=== PATIENT | male | born 1985 | race Caucasian/White ===

== ENCOUNTER 2016-09-04 20:14 | Emergency (ER) | payer BC, OTHER ==
[~2016-09-04] VITALS: Ht 200.7 cm; Wt 109.0 kg
[~2016-09-04 20:14] MED LIST: AMIT10TA6 PO; MOBI15TA PO; MS C15TA2 PO; ROBA750T PO
[2016-09-04 20:17] VITALS: BP 134/90; PULSE 78; RESP 16; TEMP 98; O2SAT 96
--- NOTE | 2016-09-04 20:29 | PD ---
HPI Chief Complaint: Pain: Acute or Chronic Time Seen by Provider: 20:29 Travel History International Travel<30 days: No Contact w/Intl Traveler<30days: No Traveled to known affect area: No History of Present Illness HPI 31-year-old male presents to emergency department for evaluation of low back pain with intermittent radiation down his right buttock and hip. Patient states he had a discectomy in May by Dr. Green. He states he has been doing well until one week ago he was playing kickball with his hoahaoism when another man jumped on his back playing. He felt that he had "tweaked" his back at that time but over the course of the week he has noticed worsening low back pain with the pain radiating into his buttock and hip on the right. He states sometimes he has numbness down to his toe but this is intermittent. Denies any saddle paresthesia, loss of bowel or bladder, lower extremity weakness. No midline spinal pain. No other symptoms to report. PFSH Past Medical History Cancer: No Cardiovascular Problems: No Diabetes: No Endocrine: No Genitourinary: No Hepatitis: No Hiatal Hernia: No Immune Disorder: No Musculoskeletal: Yes (HERNIATED DISK) Neurologic: No Psychiatric: No Reproductive: No Respiratory: No Immunizations Current: Yes Thyroid Disease: No Past Surgical History Abdominal Surgery: No AICD: No Cardiac Surgery: No Ear Surgery: No Endocrine Surgery: No Eye Surgery: No Genitourinary Surgery: No Gynecologic Surgery: No Joint Replacement: No Oral Surgery: No Pacemaker: No Thoracic Surgery: No Social History Alcohol Use: No Tobacco Use: Yes (1 PPD) Substance Use: No Allergies-Medications (Allergen,Severity, Reaction): Coded Allergies: Tramadol (Unverified Allergy, Severe, HEADACHES, 09/04/16) Reported Meds & Prescriptions Reported Meds & Active Scripts Active Robaxin (Methocarbamol) 500 Mg Tab 500 Mg PO TID PRN Ibuprofen 800 Mg Tab 800 Mg PO Q8H PRN Robaxin (Methocarbamol) 750 Mg Tab 1,500 Mg PO TID Mobic (Meloxicam) 15 Mg Tab 15 Mg PO DAILY Reported Ms Contin (Morphine Sulfate) 15 Mg Tab 15 Mg PO DAILY Amitriptyline (Amitriptyline HCl) 10 Mg Tab 10 Mg PO HS Review of Systems Except as stated in HPI: all other systems reviewed are Neg Physical Exam Narrative GENERAL: Well-nourished male patient, ambulatory and in no acute distress SKIN: Warm and dry. HEAD: Atraumatic. Normocephalic. EYES: Pupils equal and round. No scleral icterus. No injection or drainage. ENT: No nasal bleeding or discharge. Mucous membranes pink and moist. NECK: Trachea midline. No JVD. CARDIOVASCULAR: Regular rate and rhythm. No murmur appreciated. RESPIRATORY: No accessory muscle use. Clear to auscultation. Breath sounds equal bilaterally. GASTROINTESTINAL: Abdomen soft, non-tender, nondistended. Hepatic and splenic margins not palpable. MUSCULOSKELETAL: No obvious deformities. No clubbing. No cyanosis. No edema. No midline spinal tenderness. Distal pulses are palpable. Cap refill is within normal limits. Equal strength bilateral lower extremities. NEUROLOGICAL: Awake and alert. No obvious cranial nerve deficits. Motor grossly within normal limits. Normal speech. PSYCHIATRIC: Appropriate mood and affect; insight and judgment normal. Data Data Last Documented VS Vital Signs Date Time Temp Pulse Resp B/P Pulse Ox O2 Delivery O2 Flow Rate FiO2 09/04/16 22:15 82 17 138/86 99 09/04/16 20:[address] Lumb Spine W/O Contrast (09/04/16 ) Ketorolac Inj (Toradol Inj) (09/04/16 20:45) Orphenadrine Inj (Norflex Inj) (09/04/16 20:45) MDM Medical Decision Making Medical Screen Exam Complete: Yes Emergency Medical Condition: Yes Medical Record Reviewed: Yes Differential Diagnosis Lumbar strain versus discogenic pain versus radiculopathy Narrative Course 31-year-old male presents to emergency department for evaluation of low back pain. Patient appears without distress. He has no focal deficits or weakness. He is given IM Toradol and Norflex here in the emergency department. Recent history of surgery and possible reinjury, CT imaging is complete. There is no acute fracture or spinal listhesis. Postop right laminectomy at L5-S1 with a suspected area of scarring or residual or recurrent disc material centrally and in the right lateral recess. Patient is discharged home to follow-up with primary care provider and Dr. Green. He agrees to return immediately with any acute worsening symptoms. Diagnosis Primary Impression: Acute low back pain Qualified Code: M54.5 - Acute bilateral low back pain without sciatica Additional Impression: Radicular pain of right lower extremity Referrals: Artis Green MD call for appointment Primary Care Physician Patient Instructions: Acute Low Back Pain (ED), General Instructions Departure Forms: Tests/Procedures, Work Release Enter return to work date: Sep 07, 2016 Additional Instructions: Avoid heavy lifting, bending, twisting Follow-up with Dr. Green Contact his office Tuesday for an appointment Return immediately with any acute worsening of symptoms Med/Other Pt SpecificInfo: Prescription(s) given Scripts Methocarbamol (Robaxin)500 Mg Ion924 Mg PO TID PRN (MUSCLE SPASM) #20 TAB Ref 0 Prov:Selina Doran 09/04/16 Ibuprofen 800 Mg [id number] Mg PO Q8H PRN (PAIN SCALE 1 TO 10) #30 TAB Ref 0 Prov:Selina Doran 09/04/16 Disposition: 01 DISCHARGE HOME Condition: Stable Selina Doran Sep 04, 2016 20:29
[2016-09-04] MEDS ORDERED: KETOROLAC TROMETHAMINE 60 MG/2 ML (IM) VIAL IM ONE (20:45)
[2016-09-04] MEDS ORDERED: ORPHENADRINE INJ 60 MG/2 ML AMP IM ONE (20:45)
--- NOTE | 2016-09-04 21:40 | RADRPT ---
EXAM DATE/TIME: 09/04/2016 21:04 [facility] COMPARISON: No previous studies available for comparison. INDICATIONS : Back pain after someone jumped on his back; 3 months post diskectomy. RADIATION DOSE: 19.76 CTDIvol (mGy) MEDICAL HISTORY : None SURGICAL HISTORY : L5 - S1 diskectomy ENCOUNTER: Initial ACUITY: 1 week PAIN SCALE: 7/10 LOCATION: lower back TECHNIQUE: Volumetric scanning of the lumbar spine was performed. Multiplanar reconstructions in the sagittal, coronal and oblique axial planes were performed. Using automated exposure control and adjustment of the mA and/or kV according to patient size, radiation dose was kept as low as reasonably achievable t o obtain optimal diagnostic quality images. FINDINGS: VERTEBRAE: Normal alignment ALIGNMENT: No evidence of subluxation. T12-L1: The thecal sac has a normal diameter. No evidence of disc bulge or protrusion. The neural foramina are patent bilaterally. L1-L2: The thecal sac has a normal diameter. No evidence of disc bulge or protrusion. The neural foramina are patent bilaterally. L2-L3: The thecal sac has a normal diameter. No evidence of disc bulge or protrusion. The neural foramina are patent bilaterally. L3-L4: The thecal sac has a normal diameter. No evidence of disc bulge or protrusion. The neural foramina are patent bilaterally. L4-L5: Broad-based posterior disc bulge with mild encroachment on the lateral recesses and foramina. L5-S1: Postoperative right-sided partial laminectomy. There is a residual or recurrent area of disc protrusi on or scarring centrally as well as scarring in the right epidural space and lateral recess. CONCLUSION: 1. No acute fracture or spondylolisthesis. Postop right laminectomy at L5-S1 with a suspected area of scarring or residual or recurrent disc material centrally and in the right lateral recess. James Heart MD on September 04, 2016 at 21:32 Board Certified Radiologist. This report was verified electronically.
[2016-09-04] MEDS ORDERED: ROBA500T PO (21:57)
[2016-09-04] MEDS ORDERED: IBUP800T23 PO (21:57)
[2016-09-04 22:15] VITALS: BP 138/86
[2016-09-20] MEDS ORDERED: NUCY50TA9 (09:46)
[2016-09-20] MEDS ORDERED: CELE200C PO (10:08)
[2016-09-20] MEDS ORDERED: SOMA350T PO (10:08)
[2016-09-20] MEDS ORDERED: GABA600T PO (10:10)
[2016-10-18] MEDS ORDERED: OXYMTAB (10:28)
[2016-10-18] MEDS ORDERED: SOMA350T PO (10:53)
[2016-11-12] MEDS ORDERED: TIZA4CAP3 (09:41)
[2016-11-12] MEDS ORDERED: NUCY50TA9 (09:41)
[2016-11-12] MEDS ORDERED: OXYM5TAB (09:41)
[2016-11-12] MEDS ORDERED: OXYMTAB (09:41)
[2016-11-12] MEDS ORDERED: CELE1CAP8 (09:41)
[2016-11-12] MEDS ORDERED: GABA600T (09:41)
[2016-11-12] MEDS ORDERED: IBUP800T23 (09:41)
[2016-11-12] MEDS ORDERED: OXYC1TAB36 (09:41)
[2016-11-12] MEDS ORDERED: AMIT25TA9 (09:41)
[2016-11-12] MEDS ORDERED: METH750T (09:41)
[2016-11-22] MEDS ORDERED: PERC10TA27 PO (16:58)
[2016-11-22] MEDS ORDERED: ZANA4CAP PO (16:58)
[2016-11-22] MEDS ORDERED: AMIT25TA9 PO (16:58)
== END 2016-09-04 22:16 | disposition home or self-care (01) ==
LOC: NEPC 20:14
DX: M54.5 Low back pain (principal); M54.10 Radiculopathy, site unspecified; M79.604 Pain in right leg; F17.200 Nicotine dependence, unspecified, uncomplicated; Z87.39 Personal history of other diseases of the musculoskeletal system and connective tissue; W50.0XXA Accidental hit or strike by another person, initial encounter; Y93.69 Activity, other involving other sports and athletics played as a team or group
CPT/HCPCS: 72131; 96372; 99283; J1885; J2360

== ENCOUNTER 2016-10-23 17:36 | Emergency (ER) | payer BC ==
[~2016-10-23] VITALS: Ht 200.7 cm; Wt 111.9 kg
[~2016-10-23 17:36] MED LIST changes: +CELE200C PO; +GABA600T PO; +IBUP800T23 PO; -MS C15TA2 PO; +OXYMTAB; -ROBA750T PO; +SOMA350T PO
[2016-10-23 17:46] VITALS: BP 133/83; PULSE 93; RESP 16; TEMP 99.2; O2SAT 100
[2016-10-23] MEDS ORDERED: SOMA350T PO (18:10)
[2016-10-23] MEDS ORDERED: AMOX500T PO (18:18)
--- NOTE | 2016-10-23 18:18 | PD ---
HPI . Sore throat Chief Complaint: Cold / Flu Symptoms Time Seen by Provider: 18:15 Travel History International Travel<30 days: No Contact w/Intl Traveler<30days: No Traveled to known affect area: No History of Present Illness HPI Patient presents with a sore throat. He has a subjective fever. Symptoms started today. No noted exacerbating or relieving factor. His is here with similar symptoms. His 's breath smells like strep. PFSH Past Medical History Cancer: No Cardiovascular Problems: No Diabetes: No Diminished Hearing: No Endocrine: No Gastrointestinal Disorders: No Genitourinary: No Hepatitis: No Hiatal Hernia: No Hypertension: No Immune Disorder: No Musculoskeletal: Yes (HERNIATED DISK) Neurologic: No Psychiatric: No Reproductive: No Respiratory: No Immunizations Current: Yes Thyroid Disease: No Tetanus Vaccination: < 5 Years Past Surgical History Abdominal Surgery: No AICD: No Cardiac Surgery: No Ear Surgery: No Endocrine Surgery: No Eye Surgery: No Genitourinary Surgery: No Gynecologic Surgery: No Joint Replacement: No Neurologic Surgery: No Oral Surgery: No Pacemaker: No Thoracic Surgery: No Other Surgery: Yes Social History Alcohol Use: No Tobacco Use: Yes (1 PPD) Substance Use: No Allergies-Medications (Allergen,Severity, Reaction): Coded Allergies: Tramadol (Unverified Allergy, Severe, HEADACHES, 10/23/16) Reported Meds & Prescriptions Reported Meds & Active Scripts Active Reported Soma (Carisoprodol) 350 Mg Tab 350 Mg PO QID PRN Review of Systems Except as stated in HPI: all other systems reviewed are Neg General / Constitutional: Positive: Chills HENT: Positive: Sore Throat Physical Exam Narrative GENERAL: Awake and alert and in no acute distress. SKIN: Warm and dry. HEAD: Atraumatic. Normocephalic. ENT: Oropharynx has erythema with tonsillar enlargement. He has an exudate in the tonsils. There is no peritonsillar swelling. EYES: Pupils equal and round. NECK: Trachea midline. Positive cervical lymphadenopathy. CARDIOVASCULAR: Regular rate and rhythm. RESPIRATORY: No accessory muscle use. MUSCULOSKELETAL: No obvious deformities. No edema. NEUROLOGICAL: Awake and alert. No obvious cranial nerve deficits. Motor grossly within normal limits. Normal speech. PSYCHIATRIC: Appropriate mood and affect; insight and judgment normal. Data Data Last Documented VS Vital Signs Date Time Temp Pulse Resp B/P Pulse Ox O2 Delivery O2 Flow Rate FiO2 10/23/16 18:10 16 100 Room Air 10/23/16 17:46 99.2 93 133/83 MDM Medical Decision Making Medical Screen Exam Complete: Yes Emergency Medical Condition: Yes Differential Diagnosis Differential diagnosis of sore throat includes but is not limited to viral illness, strep throat, mononucleosis, retropharyngeal abscess, peritonsillar abscess Narrative Course Patient presents with a sore throat and malaise. His is here with a fever and sore throat. She smells like strep. Will be treated presumptively for strep. Diagnosis Primary Impression: Strep pharyngitis Patient Instructions: General Instructions, Strep Throat (DC) Departure Forms: Tests/Procedures Med/Other Pt SpecificInfo: Prescription(s) given Scripts Amoxicillin 500 Mg Buo327 Mg PO TID 7 Days Ref 0 Prov:Britt Villegas MD 10/23/16 Disposition: 01 DISCHARGE HOME Condition: Stable Britt Villegas MD October 23, 2016 18:18
[2016-11-12] MEDS ORDERED: OXYC1TAB36 (09:41)
[2016-11-12] MEDS ORDERED: OXYMTAB (09:41)
[2016-11-12] MEDS ORDERED: CELE1CAP8 (09:41)
[2016-11-12] MEDS ORDERED: METH750T (09:41)
[2016-11-12] MEDS ORDERED: NUCY50TA9 (09:41)
[2016-11-12] MEDS ORDERED: OXYM5TAB (09:41)
[2016-11-12] MEDS ORDERED: AMIT25TA9 (09:41)
[2016-11-12] MEDS ORDERED: GABA600T (09:41)
[2016-11-12] MEDS ORDERED: IBUP800T23 (09:41)
[2016-11-12] MEDS ORDERED: TIZA4CAP3 (09:41)
[2016-11-22] MEDS ORDERED: PERC10TA27 PO (16:58)
[2016-11-22] MEDS ORDERED: AMIT25TA9 PO (16:58)
[2016-11-22] MEDS ORDERED: ZANA4CAP PO (16:58)
== END 2016-10-23 18:27 | disposition home or self-care (01) ==
LOC: PHED 17:36
DX: J02.0 Streptococcal pharyngitis (principal)
CPT/HCPCS: 99283

== ENCOUNTER 2016-11-03 12:44 | Emergency (ER) | payer BC ==
[~2016-11-03] VITALS: Ht 200.7 cm; Wt 109.0 kg
[~2016-11-03 12:44] MED LIST changes: -AMIT10TA6 PO; +AMOX500T PO; -CELE200C PO; -GABA600T PO; -IBUP800T23 PO; -MOBI15TA PO; -OXYMTAB
[2016-11-03 12:45] VITALS: BP 139/83; PULSE 76; RESP 16; TEMP 98.9; O2SAT 100
--- NOTE | 2016-11-03 12:51 | PD ---
Physical Exam Time Seen by Provider: 12:47 Narrative Has herniated L5 and S1 and had urinary incontinence yesterday. It occurred last month one time too. Had back surgery in May 2015. Had MRI lumbar spine on Tuesday. Has imaging. Dr. Green is neurologist and is aware of MRI. Denies IVD use, cancer, fever, vomiting. Reports paraesthesias to RLE, unchanged. Ambulatory in triage. Patient seen in triage. VS reviewed. Awaiting bed placement. Data Data Last Documented VS Vital Signs Date Time Temp Pulse Resp B/P Pulse Ox O2 Delivery O2 Flow Rate FiO2 11/03/16 12:45 98.9 76 16 139/83 100 Room Air MDM Supervised Visit with BALDEMAR: Ying Ott November 03, 2016 12:51
--- NOTE | 2016-11-03 13:33 | PD ---
HPI Chief Complaint: Back/ Neck Pain or Injury Time Seen by Provider: 13:31 Travel History International Travel<30 days: No Contact w/Intl Traveler<30days: No Traveled to known affect area: No History of Present Illness HPI 31-year-old male with a history of chronic low back pain presents to the emergency department for evaluation of low back pain with an episode of urinary incontinence. The patient states that he had L5-S1 hemilaminectomy and microdiscectomy performed [address] Green. States that he had improved until he reinjured his back 2 months ago and sustained a reherniation at L5-S1. States that about 2 weeks ago he experienced a single episode of urinary incontinence. He was seen by Dr. Green in office who ordered him another MRI which was done 5 days ago. States that yesterday while driving he experienced another episode of urinary incontinence. States it was a small amount of urine but enough to saturate his underwear and jeans. He states that he called Dr. Green's office yesterday to let him know about this episode and his PA Sherry advised that his MRI had been reviewed and that this was likely not secondary to his MRI findings of herniation at L5-S1. States that while at physical therapy today he mentioned it to his physical therapist who told him that he needs to come to the emergency department for further evaluation of urinary incontinence. The patient denies any new injury or trauma to his back over the last several days. States that he did do a lot of walking at [employer] this weekend and his back has been hurting him more since then. He does have radiculopathy down the right leg to the foot. He denies any saddle anesthesia, bowel incontinence or retention, urinary retention, urinary frequency, burning with urination, fever, chills. No other complaints. PFSH Past Medical History Cancer: No Cardiovascular Problems: No Diabetes: No Diminished Hearing: No Endocrine: No Gastrointestinal Disorders: No Genitourinary: No Hepatitis: No Hiatal Hernia: No Hypertension: No Immune Disorder: No Musculoskeletal: Yes (HERNIATED DISK) Neurologic: No Psychiatric: No Reproductive: No Respiratory: No Immunizations Current: Yes Thyroid Disease: No Past Surgical History Abdominal Surgery: No AICD: No Cardiac Surgery: No Ear Surgery: No Endocrine Surgery: No Eye Surgery: No Genitourinary Surgery: No Gynecologic Surgery: No Joint Replacement: No Neurologic Surgery: No Oral Surgery: No Pacemaker: No Thoracic Surgery: No Other Surgery: Yes Social History Alcohol Use: No Tobacco Use: Yes (1 PPD) Substance Use: No Allergies-Medications (Allergen,Severity, Reaction): Coded Allergies: Tramadol (Unverified Allergy, Severe, HEADACHES, 10/23/16) Reported Meds & Prescriptions Reported Meds & Active Scripts Active Prednisone 20 Mg Tab 20 Mg PO BID 5 Days Review of Systems Except as stated in HPI: all other systems reviewed are Neg Physical Exam Narrative GENERAL: Well-nourished and well-developed pleasant male patient in no acute distress who is nontoxic appearing. SKIN: Warm and dry. HEAD: Normocephalic and atraumatic. EYES: No injection, drainage, or hyphema noted. PERRLA. EOMI. ENT: No nasal drainage noted. Oropharynx is clear. NECK: Supple and the trachea is midline. CARDIOVASCULAR: Regular rate and rhythm. RESPIRATORY: Breath sounds are equal bilaterally with no accessory muscle use, wheezing, rhonchi, or crackles. GASTROINTESTINAL: Abdomen is soft, non-tender, and nondistended. MUSCULOSKELETAL: No obvious deformities, swelling, cyanosis, or ecchymosis is present throughout the upper and lower extremities. Patient has full range of motion without any signs of neurovascular compromise. Strength 5/5 upper and lower extremities equal bilaterally. Sensation is intact. Patient does have pain in the back with lifting his right leg. BACK: Surgical scar noted over lumbar spine. Mild lumbar tenderness to palpation. No warmth, redness, obvious deformities, bony point tenderness, or crepitus noted throughout the thoracic and lumbar vertebrae. NEUROLOGICAL: Awake, alert, and oriented. Normal speech and gait. Cranial nerves are grossly intact. Data Data Last Documented VS Vital Signs Date Time Temp Pulse Resp B/P Pulse Ox O2 Delivery O2 Flow Rate FiO2 11/03/16 12:45 98.9 76 16 139/83 100 Room Air Orders Urinalysis - C+S If Indicated (11/03/16 13:49) Labs Laboratory Tests Test 11/03/16 13:54 Urine Color YELLOW Urine Turbidity CLEAR Urine pH 5.5 Urine Specific [place] 1.023 Urine Protein NEG mg/dL Urine Glucose (UA) NEG mg/dL Urine Ketones NEG mg/dL Urine Occult Blood NEG Urine Nitrite NEG Urine Bilirubin NEG Urine Urobilinogen LESS THAN 2.0 MG/DL Urine Leukocyte Esterase NEG Urine RBC 1 /hpf Urine WBC LESS THAN 1 /hpf Urine Mucus FEW /lpf Microscopic Urinalysis Comment CULT NOT INDICATED MDM Medical Decision Making Medical Screen Exam Complete: Yes Emergency Medical Condition: Yes Differential Diagnosis Urinary incontinence versus urinary tract infection versus acute on chronic low back pain versus radiculopathy versus other Narrative Course 31-year-old male with a history of disc herniation at L5-S1 presents to the emergency department for evaluation of an episode of urinary incontinence that occurred yesterday. Patient is afebrile, vital signs are stable. Neurologic examination is unremarkable. He has full strength and no loss of sensation. He had an MRI lumbar spine with and without contrast from October 29, 2016 shows small recurrent left paracentral disc bulge at L5-S1 which appears to touch the left S1 nerve root. Clinical correlation is recommended. Mild bilateral foraminal narrowing at L4-5 and L5-S1. Degenerative disc disease at L4-5 and L5 -S1 and to a much lesser extent at L3-4. I discussed with my attending physician and we agree this episode of urinary incontinence does not correlate with MRI results and we do not suspect a cauda equina syndrome. This is basically what he was told by his neurosurgeon yesterday. I discussed with the patient that the etiology of his urinary incontinence is unclear but we will do a urinalysis and if this is unremarkable have him follow-up as an outpatient with his PCP. He may need urology referral if this continues. He is also inquiring about something for his back pain. He's currently prescribed Opana ER and Percocet 10 which he says he is out of - however [place] Prescription Drug Monitoring Program states he should have another 8 days of these medications. We'll prescribe him a short course of steroids. Urinalysis is unremarkable. Discussed with the patient and he is agreeable with the plan. Stable for discharge. I discussed the case with my attending physician Dr. Garcia who is aware of the patients history, physical examination findings, and treatment plan. Diagnosis Primary Impression: Urinary incontinence Qualified Code: R32 - Urinary incontinence, unspecified type Additional Impression: Chronic low back pain with right-sided sciatica Qualified Code: M54.41 - Chronic midline low back pain with right-sided sciatica Referrals: Artis Green MD Primary Care Physician Patient Instructions: General Instructions Additional Instructions: Your urinalysis is unremarkable. Does not show any infection. Take prednisone as prescribed with food and a full glass of water for back pain with radiculopathy. Follow-up with your Primary Care Physician regarding urinary symptoms. Return to the ED for any acute worsening of symptoms. Med/Other Pt SpecificInfo: Prescription(s) given Scripts Prednisone 20 Mg Tab20 Mg PO BID 5 Days Ref 0 Prov:Chris Garcia MD 11/03/16 Disposition: 01 DISCHARGE HOME Condition: Stable Ying Santizo November 03, 2016 13:32
[2016-11-03 14:09] LABS: BLOOD, URINE NEG (NEG); COMMENT (UR) CULT NOT INDICATED; CULTURE IF INDICATED CULT NOT INDICATED; GLUCOSE,URINE NEG (NEG); KETONE, URINE NEG (NEG); MUCUS URINE FEW /lpf (OCC); NITRITE,URINE NEG (NEG); PH, URINE 5.5 (5.0-8.5); URINE COLOR YELLOW (YELLW/STRAW)
[2016-11-03] MEDS ORDERED: PRED20 PO (14:33)
[2016-11-12] MEDS ORDERED: OXYMTAB (09:41)
[2016-11-12] MEDS ORDERED: CELE1CAP8 (09:41)
[2016-11-12] MEDS ORDERED: METH750T (09:41)
[2016-11-12] MEDS ORDERED: NUCY50TA9 (09:41)
[2016-11-12] MEDS ORDERED: IBUP800T23 (09:41)
[2016-11-12] MEDS ORDERED: OXYM5TAB (09:41)
[2016-11-12] MEDS ORDERED: TIZA4CAP3 (09:41)
[2016-11-12] MEDS ORDERED: GABA600T (09:41)
[2016-11-12] MEDS ORDERED: OXYC1TAB36 (09:41)
[2016-11-12] MEDS ORDERED: AMIT25TA9 (09:41)
[2016-11-22] MEDS ORDERED: PERC10TA27 PO (16:58)
[2016-11-22] MEDS ORDERED: ZANA4CAP PO (16:58)
[2016-11-22] MEDS ORDERED: AMIT25TA9 PO (16:58)
== END 2016-11-03 15:16 | disposition home or self-care (01) ==
LOC: NEPD 12:44
DX: R32 Unspecified urinary incontinence (principal); M54.41 Lumbago with sciatica, right side; M51.26 Other intervertebral disc displacement, lumbar region
CPT/HCPCS: 81001; 99283

== ENCOUNTER 2016-11-20 15:34 | Emergency (ER) | payer BC ==
[~2016-11-20] VITALS: Ht 193 cm; Wt 107.0 kg
[~2016-11-20 15:34] MED LIST changes: +AMIT25TA9; -AMOX500T PO; +CELE1CAP8; +GABA600T; +IBUP800T23; +METH750T; +NUCY50TA9; +OXYC1TAB36; +OXYM5TAB; +OXYMTAB; +PRED20 PO; -SOMA350T PO; +TIZA4CAP3
[2016-11-20 15:36] VITALS: BP 151/93; PULSE 73; RESP 16; TEMP 98.3
--- NOTE | 2016-11-20 16:28 | PD ---
HPI Chief Complaint: Complaint Time Seen by Provider: 16:20 Travel History International Travel<30 days: No Contact w/Intl Traveler<30days: No Traveled to known affect area: No History of Present Illness HPI 31-year-old male with history of chronic back pains, has been following up with Dr. Green and had an MRI of the lumbar spine on October 29 which shows a recurrent left her central disc bulge in L5-S1 which touches on the left S1 nerve root. There is also some mild foraminal narrowing in L4-5 and L5-S1, seen more than a week and a half ago for urinary incontinence and was released after discussions with Dr. Green who did not think that the symptoms were related to the district radiation, presents to the ER today because he had another episode of incontinence of urine and feels tingling in his right thigh area. He does not have stool incontinence. He denies any new pain, difficulty walking, or other symptoms. He states that the last episode was when he was seen the last time in the ER. He is supposed to follow-up with Dr. Green on Tuesday. Modifying Factors: None Associated Signs & Symptoms: Urinary incontinence Risk Factors: Chronic back issues, lumbar and sacral disc herniation. PFSH Past Medical History Hx Anticoagulant Therapy: No Cancer: No Cardiovascular Problems: No Diabetes: No Diminished Hearing: No Endocrine: No Gastrointestinal Disorders: No Genitourinary: No Hepatitis: No Hiatal Hernia: No Hypertension: No Immune Disorder: No Musculoskeletal: Yes (HERNIATED DISK) Neurologic: No Psychiatric: No Reproductive: No Respiratory: No Immunizations Current: Yes Thyroid Disease: No Past Surgical History Abdominal Surgery: No AICD: No Cardiac Surgery: No Ear Surgery: No Endocrine Surgery: No Eye Surgery: No Genitourinary Surgery: No Gynecologic Surgery: No Joint Replacement: No Neurologic Surgery: No Oral Surgery: No Pacemaker: No Thoracic Surgery: No Other Surgery: Yes Social History Alcohol Use: No Tobacco Use: Yes (1 PPD) Substance Use: No Allergies-Medications (Allergen,Severity, Reaction): Coded Allergies: Tramadol (Unverified Allergy, Severe, HEADACHES, 11/20/16) Reported Meds & Prescriptions Reported Meds & Active Scripts Active Prednisone 20 Mg Tab 20 Mg PO BID 5 Days Reported Opana ER (Crush Resistant) (Oxymorphone HCl) 5 Mg Tab Nucynta (Tapentadol) 50 Mg Tab Oxymorphone (Oxymorphone HCl) 5 Mg Tab Tizanidine (Tizanidine HCl) 4 Mg Cap Oxycodone-Acetaminophen 10-325 mg Tab Amitriptyline (Amitriptyline HCl) 25 Mg Tab Gabapentin 600 Mg Tab Celecoxib 200 Mg Cap Ibuprofen 800 Mg Tab Methocarbamol 750 Mg Tab Review of Systems Except as stated in HPI: all other systems reviewed are Neg Physical Exam Narrative GENERAL: Well-developed middle age white male patient currently in mild distress. Awake and oriented 3. SKIN: Focused skin assessment warm/mildly diaphoretic. HEAD: Atraumatic. Normocephalic. EYES: Pupils equal and round. No scleral icterus. No injection or drainage. ENT: No nasal bleeding or discharge. Mucous membranes pink and moist. NECK: Trachea midline. No JVD. CARDIOVASCULAR: Regular rate and rhythm. No murmur appreciated. RESPIRATORY: No accessory muscle use. Clear to auscultation. Breath sounds equal bilaterally. GASTROINTESTINAL: Abdomen soft, non-tender, nondistended. Hepatic and splenic margins not palpable. BACK: No CVA tenderness. No rash. No point tenderness on palpation of the spine. MUSCULOSKELETAL: No obvious deformities. No clubbing. No cyanosis. No edema. RECTAL EXAM: No masses or tenderness, normal rectal tone. No saddle anesthesia. NEUROLOGICAL: Awake and alert. No obvious cranial nerve deficits. Motor grossly within normal limits. Normal speech. PSYCHIATRIC: Appropriate mood and affect; insight and judgment normal. Data Data Last Documented VS Vital Signs Date Time Temp Pulse Resp B/P Pulse Ox O2 Delivery O2 Flow Rate FiO2 11/20/16 15:36 98.3 73 16 151/93 [facility] Medical Decision Making Medical Screen Exam Complete: Yes Emergency Medical Condition: Yes Medical Record Reviewed: Yes Differential Diagnosis Urinary incontinence, history of sacral disc bulge Narrative Course Case was discussed with Dr. Villa who is covering for Dr. Green and he states that he does not feel that the patient's symptoms related to the findings on MRI. Patient has a normal rectal tone and is ambulatory without issues. He did not have any significant several anesthesia on my evaluation. At this point , patient is supposed to follow-up with Dr. Green on Tuesday which is in less than 2 days and my plan would be to have her follow-up. In addition, Dr. Villa also suggested that the patient follows up with urology which was the previous directive on patient's last visit as well. I have offered to do a UA and the patient but he is declining at this time stating that he does not feel that he is having dysuria and a UA done last time did not show anything as well. Patient should return for any worsening in symptoms, pain, incontinence, stool incontinence, or no new issues as needed. The plan was discussed with the patient and he states understanding. Diagnosis Primary Impression: Urinary incontinence Disposition: 01 DISCHARGE HOME Condition: Stable Yahaira Bocanegra MD Nov 20, 2016 16:28
[2016-11-22] MEDS ORDERED: ZANA4CAP PO (16:58)
[2016-11-22] MEDS ORDERED: PERC10TA27 PO (16:58)
[2016-11-22] MEDS ORDERED: AMIT25TA9 PO (16:58)
== END 2016-11-20 17:02 | disposition home or self-care (01) ==
LOC: PHED 15:34
DX: N39.498 Other specified urinary incontinence (principal); R20.2 Paresthesia of skin; F17.200 Nicotine dependence, unspecified, uncomplicated; Z87.39 Personal history of other diseases of the musculoskeletal system and connective tissue
CPT/HCPCS: 99282

== ENCOUNTER → 2016-12-02 | Outpatient (CLI) | payer BC ==
[~2016-12-02] MED LIST changes: -AMIT25TA9; +AMIT25TA9 PO; -CELE1CAP8; -GABA600T; -IBUP800T23; -METH750T; -NUCY50TA9; -OXYC1TAB36; -OXYM5TAB; -OXYMTAB; +PERC10TA27 PO; -PRED20 PO; -TIZA4CAP3; +ZANA4CAP PO
[2016-12-02 10:44] LABS: APTT (PATIENT) 30.3 SEC (24.3-30.1); INTERNATIONAL NORMALIZED RATIO 1.8 RATIO; PROTHROMBIN TIME - PATIENT 20.6 SEC (9.8-11.6)
[2016-12-02 10:48] LABS: BLOOD, URINE NEG (NEG); COMMENT (UR) CULT NOT INDICATED; CULTURE IF INDICATED CULT NOT INDICATED; GLUCOSE,URINE NEG (NEG); KETONE, URINE NEG (NEG); MUCUS URINE FEW /lpf (OCC); NITRITE,URINE NEG (NEG); PH, URINE 7.5 (5.0-8.5); URINE COLOR YELLOW (YELLW/STRAW)
[2016-12-02 10:48] LABS: AUTOMATED NEUTROPHIL # 5.7 TH/MM3 (1.8-7.7); BASOPHIL % 0.3 % (0.0-2.0); EOSINOPHIL # 0.1 TH/MM3 (0-0.4); EOSINOPHIL % 0.9 % (0.0-4.0); HEMATOCRIT 43.6 % (39.0-51.0); HEMO FLAGS DIFF FINAL; LYMPH % 21.4 % (9.0-44.0); LYMPHOCYTE # 1.7 TH/MM3 (1.0-4.8); MEAN CELL VOLUME 84.6 FL (80.0-100.0); MEAN CORPUSCULAR HEMOGLOBIN 29.3 PG (27.0-34.0); MEAN CORPUSCULAR HGB CONC 34.6 % (32.0-36.0); MONO % 6.6 % (0.0-8.0); NEUT % 70.8 % (16.0-70.0); PLATELET COUNT 200 TH/MM3 (150-450); RED BLOOD COUNT 5.15 MIL/MM3 (4.50-5.90); RED CELL DISTRIBUTION WIDTH 13.3 % (11.6-17.2); WHITE BLOOD COUNT 8.1 TH/MM3 (4.0-11.0)
[2016-12-02 11:01] LABS: ALT (GPT) 113 U/L (12-78); ANION GAP 4 MEQ/L (5-15); AST (GOT) 47 U/L (15-37); BICARBONATE 31.9 MEQ/L (21.0-32.0); BLOOD UREA NITROGEN 13 MG/DL (7-18); CHLORIDE 107 MEQ/L (98-107); GLOMERULAR FILTRATION RATE 98 ML/MIN (>89); GLUCOSE,FASTING 85 MG/DL (74-99); POTASSIUM 4.5 MEQ/L (3.5-5.1); SODIUM (NA) 143 MEQ/L (136-145)
[2016-12-02 11:04] LABS: ALKALINE PHOSPHATASE 46 U/L (45-117); TOTAL BILIRUBIN ADULT 0.4 MG/DL (0.2-1.0)
== END ==
LOC: CPRE 09:57
PROVIDERS: ATTEND Neurological Surgery
DX: Z01.812 Encounter for preprocedural laboratory examination (principal); M51.26 Other intervertebral disc displacement, lumbar region
CPT/HCPCS: 36415; 80053; 81001; 85025; 85610; 85730

== ENCOUNTER 2016-12-08 06:32 | Observation (INO) | payer BC ==
[~2016-12-08] VITALS: Ht 200.7 cm; Wt 114.0 kg
[2016-12-08] MEDS ORDERED: METOPROLOL TARTRATE 25 MG TAB PO PRN (07:00)
[2016-12-08] MEDS ORDERED: SODIUM CHLORID 0.9% 500 ML IV PRN (07:00)
[2016-12-08] MEDS ORDERED: CHLORHEXIDINE GLUCONATE 2 % 1 PACK (2 CLOTHS) TOPICAL PRN (07:00)
[2016-12-08] MEDS ORDERED: INSULIN HUMAN REGULAR 1,000 UNITS/10 ML VIAL SQ PRN (07:00)
[2016-12-08] MEDS ORDERED: POVIDONE IODINE 5% (ANTISEPSIS KIT) 4 APPLICATIONS EACH NARE PRN (07:00)
[2016-12-08] MEDS ORDERED: LACTATED RINGER'S 1000 ML IV PRN (07:00)
[2016-12-08] MEDS ORDERED: VANCOMYCIN HCL 1000 MG VIAL ONE (07:02)
[2016-12-08] MEDS ORDERED: SODIUM CHLOR 0.9% 250 ML INJ 250 ML ONE (07:03)
[2016-12-08 07:17] VITALS: BP 116/74; PULSE 90; RESP 18; TEMP 98.2; O2SAT 96
[2016-12-08] MEDS ORDERED: ceFAZolin 2 GM PREMIX 50 ML ONE (07:26)
[2016-12-08] MEDS ORDERED: THROMBIN (TOPICAL) 5,000 UNIT VIAL ONE (07:26)
[2016-12-08] MEDS ORDERED: GELFOAM SIZE 100 ONE (07:27)
[2016-12-08] MEDS ORDERED: GENTAMICIN SULFATE 80 MG/2 ML VIAL ONE (07:27)
[2016-12-08] MEDS ORDERED: methylPREDNISolone ACETATE 40 MG/ML VIAL ONE (07:27)
[2016-12-08] MEDS ORDERED: BUPIVACAINE HCL PF 0.5% 30 ML VIAL ONE (07:38)
[2016-12-08 07:45] LABS: PROTHROMBIN TIME - PATIENT 10.9 SEC (9.8-11.6)
[2016-12-08] MEDS ORDERED: ACETAMINOPHEN 1000 MG/100 ML VIAL IV ONE (07:46)
[2016-12-08] MEDS ORDERED: FAMOTIDINE 20 MG/2 ML VIAL ONE (07:47)
[2016-12-08] MEDS ORDERED: ARTIFICIAL TEARS OPTH OINT 3.5 APPLIC/3.5 GM TUBO ONE (07:47)
[2016-12-08] MEDS ORDERED: MIDAZOLAM HCL 2 MG/2 ML VIAL ONE ×2 (07:47→08:09)
[2016-12-08] MEDS ORDERED: fentaNYL CITRATE 250 MCG/5 ML AMP ONE (07:47)
[2016-12-08] MEDS ORDERED: ACETAMINOPHEN 325 MG TAB PO PRN (12:00)
[2016-12-08] MEDS ORDERED: PROPOFOL 200 MG/20 ML AMP IV ONE (12:00)
[2016-12-08] MEDS ORDERED: LACTATED RINGER'S 1000 ML INJ 1,000 ML IV ONE (12:00)
[2016-12-08] MEDS ORDERED: ACETAMINOPHEN/HYDROcodone 325 MG/10 MG TAB PO PRN ×2 (12:00)
[2016-12-08] MEDS ORDERED: NEOSTIGMINE 3 MG/3 ML SYR IV ONE (12:00)
[2016-12-08] MEDS ORDERED: MORPHINE SULFATE 4 MG/ML INJ IV PUSH PRN (12:00)
[2016-12-08] MEDS ORDERED: ONDANSETRON HCL 4 MG/2 ML VIAL IV PUSH ONE (12:00)
[2016-12-08] MEDS ORDERED: SODIUM CHLORIDE 0.9% FLUSH 10 ML FLUSH IV FLUSH PRN (12:00)
[2016-12-08] MEDS ORDERED: *morphine SULFATE 8 MG/ML PERIprocedure ONLY ONE ×2 (12:02→12:19)
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
[2016-12-08] MEDS: NS + KCL 20 MEQ INJ 1,000 ML IV SCH ×2 (12:30→23:00)
[2016-12-08] MEDS ORDERED: oxyCODONE/ACETAMINOPHEN 10 MG/325 MG TAB PO PRN (12:30)
[2016-12-08] MEDS ORDERED: PERC10TA27 PO (12:42)
[2016-12-08] MEDS ORDERED: DO NOT ADM ANY ANTICOAGULANT DRUGS PRN ×2 (12:45→15:15)
[2016-12-08] MEDS ORDERED: *HYDROmorphone PF 1 MG VIAL PERIprocedural Use ONLY ONE ×2 (13:05→14:09)
--- NOTE | 2016-12-08 13:28 | RADRPT ---
EXAM DATE/TIME: 12/08/2016 08:56 [facility] COMPARISON: SPINE LUMBAR LATERAL ONLY, June 04, 2016, 9:10. INDICATIONS : Microdiskectomy, laminectomy L5-S1. MEDICAL HISTORY : Herniated disk SURGICAL HISTORY : Laminectomy ENCOUNTER: Initial ACUITY: 1 day PAIN SCORE: 0/10 LOCATION: Lumbar spine FINDINGS: Metallic probe is directed at L5-S1 assuming 5 lumbar discs. CONCLUSION: Probe at L5-S1. Maurice Fontenot MD FACR on December 08, 2016 at 13:25 Board Certified Radiologist. This report was verified electronically.
[2016-12-08] MEDS ORDERED: HYDROmorphone HCL PF 1 MG/ML VIAL IV ONE (14:00)
[2016-12-08 16:48] VITALS: BP 122/69; PULSE 92; RESP 16; TEMP 97.4; O2SAT 97
[2016-12-08] MEDS: ceFAZolin 2 GM PREMIX 50 ML IV SCH (17:09)
[2016-12-08] MEDS ORDERED: oxyCODONE/ACETAMINOPHEN 5 MG/325 MG TAB PO PRN (19:00)
[2016-12-08] MEDS: MORPHINE SULFATE 4 MG/ML INJ IV PUSH PRN ×2 (19:42→22:37)
[2016-12-08 20:00] VITALS: BP 116/68; PULSE 97; RESP 18; TEMP 97.9; O2SAT 96
[2016-12-08] MEDS ORDERED: NICOTINE 21 MG/24 HR PATCH T-DERMAL SCH (21:00)
[2016-12-08] MEDS: SODIUM CHLORIDE 0.9% FLUSH 10 ML FLUSH IV FLUSH SCH (21:00)
[2016-12-08] MEDS ORDERED: AMITRIPTYLINE HCL 25 MG TAB PO SCH (21:00)
[2016-12-08] MEDS: DOCUSATE SODIUM 100 MG CAP PO SCH (21:33)
[2016-12-08] MEDS: oxyCODONE/ACETAMINOPHEN 10 MG/325 MG TAB PO PRN (21:34)
[2016-12-09] VITALS: BP 111/57; PULSE 85; RESP 16; TEMP 96.6; O2SAT 94
[2016-12-09] MEDS: ceFAZolin 2 GM PREMIX 50 ML IV SCH ×2 (00:22→08:34)
[2016-12-09] MEDS: MORPHINE SULFATE 4 MG/ML INJ IV PUSH PRN ×4 (00:25→10:51)
[2016-12-09 04:00] VITALS: BP 121/63; PULSE 83; RESP 18; TEMP 95.9; O2SAT 96
[2016-12-09] MEDS: oxyCODONE/ACETAMINOPHEN 10 MG/325 MG TAB PO PRN (04:42)
[2016-12-09 08:23] VITALS: BP 131/67; PULSE 88; RESP 18; TEMP 97.5; O2SAT 94
[2016-12-09] MEDS: DOCUSATE SODIUM 100 MG CAP PO SCH (08:34)
[2016-12-09 08:42] VITALS: O2SAT 100
[2016-12-09 08:44] VITALS: RESP 18
[2016-12-09] MEDS ORDERED: PANTOPRAZOLE SOD 40 MG DELAYED RELEASE TAB PO SCH (09:00)
[2016-12-09] MEDS: NS + KCL 20 MEQ INJ 1,000 ML IV SCH (09:22)
[2016-12-09] MEDS: SODIUM CHLORIDE 0.9% FLUSH 10 ML FLUSH IV FLUSH SCH (09:23)
--- NOTE | 2016-12-09 10:21 | HHI.DCPOC ---
Discharge Care Plan Diagnosis: (1) Status post laminectomy Goals to Promote Your Health * To prevent worsening of your condition and complications * To maintain your health at the optimal level Directions to Meet Your Goals Take your medications as prescribed Follow your dietary instruction Follow activity as directed Keep your appointments as scheduled Take your immunizations and boosters as scheduled If your symptoms worsen call your PCP, if no PCP go to Urgent Care Center or Emergency Room Smoking is Dangerous to Your Health. Avoid second hand smoke Call the 24-hour hour crisis hotline for domestic abuse at Noelle Hare Dec 09, 2016 10:21
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
[2016-12-09] MEDS ORDERED: PERC10TA27 PO (12:06)
[2016-12-09] MEDS ORDERED: REMOVE OLD PATCH T-DERMAL SCH (21:00)
== END 2016-12-09 11:55 | disposition home or self-care (01) ==
LOC: HSDC 06:32 → HSDI 11:58 → N05A 14:56
PROVIDERS: ADMIT Neurological Surgery; ATTEND Neurological Surgery
DX: M51.16 Intervertebral disc disorders with radiculopathy, lumbar region (principal)
CPT/HCPCS: 00630; 63047; 72020; 76000; 85610; 94150; 97163; G0378; J0131; J0690; J1030; J1170; J1580; J2250; J2270; J2405; J2710; J3010; J3370; J3480; J7050; J7120; L0484

== ENCOUNTER 2017-04-28 07:12 | Day surgery (SDC) | payer BC ==
[~2017-04-28] VITALS: Ht 200.7 cm; Wt 120.5 kg
[~2017-04-28 07:12] MED LIST changes: +CYCL5TAB PO; +HYDR4TAB PO; +IBUP1TAB7 PO
[2017-04-28 07:28] VITALS: BP 138/86; PULSE 102; RESP 20; TEMP 97.9; O2SAT 96
[2017-04-28 07:57] LABS: BASOPHIL % 0.3 % (0.0-2.0); EOSINOPHIL # 0.1 TH/MM3 (0-0.4); EOSINOPHIL % 2.1 % (0.0-4.0); HEMATOCRIT 45.4 % (39.0-51.0); HEMO FLAGS DIFF FINAL; LYMPH % 29.6 % (9.0-44.0); MEAN CELL VOLUME 84.2 FL (80.0-100.0); MEAN CORPUSCULAR HEMOGLOBIN 30.1 PG (27.0-34.0); MEAN CORPUSCULAR HGB CONC 35.8 % (32.0-36.0); MONO % 8.7 % (0.0-8.0); NEUT % 59.3 % (16.0-70.0); PLATELET COUNT 199 TH/MM3 (150-450); RED CELL DISTRIBUTION WIDTH 12.4 % (11.6-17.2); WHITE BLOOD COUNT 6.7 TH/MM3 (4.0-11.0)
[2017-04-28] MEDS ORDERED: SODIUM CHLOR 0.9% 1000 ML INJ 1,000 ML IV SCH (08:00)
[2017-04-28 08:05] LABS: APTT (PATIENT) 31.5 SEC (24.3-30.1); PROTHROMBIN TIME - PATIENT 11.4 SEC (9.8-11.6)
[2017-04-28] MEDS ORDERED: MIDAZOLAM HCL 2 MG/2 ML VIAL ONE (09:37)
--- NOTE | 2017-04-28 10:29 | PD.RAD ---
Post Procedure Progress Note Pre Procedure Diagnosis: (1) Discitis (2) Acute low back pain Post Procedure Diagnosis: (1) Acute low back pain (2) Discitis Procedure Date: Apr 28, 2017 Supervising Radiologist: Nima Fontenot Estimated blood loss: none Anesthesia: Local, Conscious Sedation Plan of Activity Patient to Unit: ROPU Patient Condition: Good Additional Comments: Successful L5/S1 disc aspiration. Full dictated report to follow See PACS Report for procedural detail/treatment Nima Fontenot MD Apr 28, 2017 10:29
[2017-04-28 10:40] VITALS: BP 107/64; PULSE 89; RESP 18; TEMP 98.1; O2SAT 94
[2017-04-28 10:55] VITALS: BP 113/34; PULSE 90; RESP 18; O2SAT 95
[2017-04-28 11:25] VITALS: BP 109/72; PULSE 80; RESP 18; O2SAT 93
[2017-04-28] MEDS ORDERED: oxyCODONE/ACETAMINOPHEN 5 MG/325 MG TAB PO ONE (11:30)
[2017-04-28 11:55] VITALS: BP 126/82; PULSE 82; RESP 18; O2SAT 94
--- NOTE | 2017-04-28 12:25 | RADRPT ---
EXAM DATE/TIME: 04/28/2017 09:32 [facility] COMPARISON: No previous studies available for comparison. INDICATIONS : Patient with a history of discitis. MEDICAL HISTORY : Low back pain SURGICAL HISTORY : Laminectomy L5-S1 ENCOUNTER: Initial ACUITY: 3 months PAIN SCORE: 8/10 LOCATION: low back FLUORO TIME: 5.3 minutes IMAGE SERIES: 0 SEDATION TIME: 17 minutes MEDICATION(S): 1.) 4 mg midazolam (Versed) IV 2.) 200 mcg fentanyl (Sublimaze) IV DEVICE(S): 1.) 22 gauge Chiba needle Core specimen(s) was obtained and submitted to laboratory for pathologic evaluation. TECH NOTE: L5-S1 disc biopsyLEONOR WHITTINGTON MR#:[id number] Exam Dt/Desc: April 28, 2017DISC ASPIR ATION/BIOPSY PROCEDURE : 1. Fluoroscopically guided needle biopsy. 2. Conscious sedation with continuous EKG and Oximetry monitoring. Clinical history: The patient is a 31-year-old who underwent previous microdiscectomy. The patient had MRI imaging perf ormed it demonstrates some subtle enhancement along the vertebral endplate and superior aspect of the disc. It was uncertain if this was related to scarring or possible low-grade discitis. We are asked to do a fluoroscopic guided disc biopsy at the L5-S1 level. The risks, benefits and alternatives to the procedure were explained and verbal and written consent w as obtained. The site was prepped in sterile fashion. Full sterile technique was used, including cap, mask, steri le gloves and gown and a large sterile sheet. Hand hygiene and 2% chlorhexidine and/or betadine/alco hol prep was utilized per protocol for cutaneous antisepsis. The skin and subcutaneous tissues were infiltrated with local anesthetic solution. With fluoroscopic guidance a 22 gauge needle was advanced oblique plane into the central aspect of th e disc at L5-S1. The needle was moved across the disc with multiple passes while under direct aspirat ion. The aspirate was removed, placed in sterile saline and sent to pathology for Gram stain culture and s ensitivity. Conscious sedation was performed with the prescribed dosages and duration as above in the presence of an independent trained radiology nurse to assist in the monitoring of the patient. EKG and oximetry remained stable throughout the procedure. CONCLUSION: Uncomplicated needle biopsy/aspiration of the L5/S1 disc as above. Nima Fontenot MD on April 28, 2017 at 12:22 Board Certified Radiologist. This report was verified electronically.
== END 2017-04-28 12:15 | disposition home or self-care (01) ==
LOC: HROP 07:12 → HRIP 07:14 → HROP 12:15
PROVIDERS: ATTEND Neurological Surgery
DX: M46.46 Discitis, unspecified, lumbar region (principal); M54.5 Low back pain; R79.1 Abnormal coagulation profile
CPT/HCPCS: 62267; 77003; 85025; 85610; 85730; 87070; 87176; 87205; 99152; 99153; J2250; J3010; J7030; 77002

== ENCOUNTER → 2017-05-24 | Outpatient (CLI) | payer BC ==
[~2017-05-24] MED LIST changes: -AMIT25TA9 PO; +CYCL10TA PO; +GABA600T PO; -IBUP1TAB7 PO; +OXYC-395 PO; -PERC10TA27 PO; -ZANA4CAP PO
[2017-05-24 09:41] LABS: BLOOD, URINE NEG (NEG); COMMENT (UR) CULT NOT INDICATED; CULTURE IF INDICATED CULT NOT INDICATED; GLUCOSE,URINE NEG (NEG); KETONE, URINE NEG (NEG); NITRITE,URINE NEG (NEG); PH, URINE 5.5 (5.0-8.5); URINE COLOR YELLOW (YELLW/STRAW)
[2017-05-24 10:08] LABS: ANION GAP 6 MEQ/L (5-15); AST (GOT) 51 U/L (15-37); BICARBONATE 27.2 MEQ/L (21.0-32.0); BLOOD UREA NITROGEN 13 MG/DL (7-18); CHLORIDE 105 MEQ/L (98-107); GLOMERULAR FILTRATION RATE 89 ML/MIN (>89); GLUCOSE,FASTING 90 MG/DL (74-99); POTASSIUM 4.6 MEQ/L (3.5-5.1); SODIUM (NA) 138 MEQ/L (136-145)
[2017-05-24 10:14] LABS: ALKALINE PHOSPHATASE 50 U/L (45-117); ALT (GPT) 145 U/L (12-78); TOTAL BILIRUBIN ADULT 0.5 MG/DL (0.2-1.0)
[2017-05-24 11:17] LABS: MRSA PCR NEGATIVE (NEGATIVE); STAPH AUREUS PCR NEGATIVE (NEGATIVE)
== END ==
LOC: CPRE 08:23
PROVIDERS: ATTEND Neurological Surgery
DX: Z01.812 Encounter for preprocedural laboratory examination (principal); Z01.818 Encounter for other preprocedural examination; M51.26 Other intervertebral disc displacement, lumbar region
CPT/HCPCS: 36415; 80053; 81001; 87640; 87641

== ENCOUNTER 2017-05-25 06:33 | Inpatient (IN) | payer BC ==
[~2017-05-25] VITALS: Ht 200.7 cm; Wt 118.0 kg
[~2017-05-25 06:33] MED LIST changes: -CYCL10TA PO; -GABA600T PO; -HYDR4TAB PO; -OXYC-395 PO
[2017-05-25] MEDS ORDERED: SODIUM CHLORID 0.9% 500 ML IV PRN (07:00)
[2017-05-25] MEDS ORDERED: CHLORHEXIDINE GLUCONATE 2 % 1 PACK (2 CLOTHS) TOPICAL PRN (07:00)
[2017-05-25] MEDS ORDERED: METOPROLOL TARTRATE 25 MG TAB PO PRN (07:00)
[2017-05-25] MEDS ORDERED: POVIDONE IODINE 5% (ANTISEPSIS KIT) 4 APPLICATIONS EACH NARE PRN (07:00)
[2017-05-25] MEDS ORDERED: SODIUM CHLOR 0.9% 1000 ML INJ 1,000 ML IV SCH (07:00)
[2017-05-25] MEDS ORDERED: LACTATED RINGER'S 1000 ML IV PRN (07:00)
[2017-05-25] MEDS ORDERED: PROPOFOL 500 MG/50 ML INJ 200 ML ONE (07:02)
[2017-05-25] MEDS ORDERED: MIDAZOLAM HCL 2 MG/2 ML VIAL ONE (07:02)
[2017-05-25] MEDS ORDERED: ACETAMINOPHEN 1000 MG/100 ML 0 ML IV ONE (07:02)
[2017-05-25] MEDS ORDERED: ARTIFICIAL TEARS OPTH OINT 3.5 APPLIC/3.5 GM TUBO ONE (07:02)
[2017-05-25] MEDS ORDERED: VANCOMYCIN HCL 1000 MG VIAL ONE (07:22)
[2017-05-25] MEDS ORDERED: THROMBIN (TOPICAL) 5,000 UNIT VIAL ONE (07:22)
[2017-05-25] MEDS ORDERED: ceFAZolin 2 GM PREMIX 50 ML ONE (07:22)
[2017-05-25] MEDS ORDERED: BUPIVACAINE/EPINEPHRINE 0.5% PF 30 ML VIAL ONE (07:22)
[2017-05-25] MEDS ORDERED: GELFOAM SIZE 100 ONE (07:23)
[2017-05-25] MEDS ORDERED: GENTAMICIN SULFATE 80 MG/2 ML VIAL ONE (07:34)
[2017-05-25] MEDS: CHLORHEXIDINE GLUCONATE 2 % 1 PACK (2 CLOTHS)(extra cloths) TOPICAL SCH (07:45)
[2017-05-25] MEDS: VANCOMYCIN HCL 1000 MG ON-CALL/NS 250 ML IV SCH ×4 (07:46→11:35)
[2017-05-25] MEDS ORDERED: DEXAMETHASONE SOD PHOS 4 MG/ML VIAL ONE (10:13)
[2017-05-25] MEDS ORDERED: PROPOFOL 500 MG/50 ML INJ 100 ML ONE (10:13)
[2017-05-25] MEDS ORDERED: HYDROmorphone HCL PF 2 MG/ML VIAL ONE ×2 (10:13→15:58)
[2017-05-25] MEDS ORDERED: KETAMINE HCL 500 MG/10 ML VIAL ONE (10:14)
[2017-05-25] MEDS ORDERED: LIDOCAINE HCL 1% PF 5 ML SYRINGE OTHER ONE (12:00)
[2017-05-25] MEDS ORDERED: ROCURONIUM INJ 50 MG/5 ML SYRINGE IV PUSH ONE (12:00)
[2017-05-25] MEDS ORDERED: MORPHINE SULFATE 4 MG/ML INJ IV ONE (12:00)
[2017-05-25] MEDS ORDERED: SODIUM CHLOR 0.9% 250 ML INJ 250 ML IV ONE (12:00)
[2017-05-25] MEDS ORDERED: PHENYLEPH/NS 1000 MCG/10 ML SYR IV ONE (12:00)
[2017-05-25] MEDS ORDERED: ESMOLOL HCL 100 MG/10 ML VIAL IV ONE (12:00)
[2017-05-25] MEDS ORDERED: PHENYLEPHRINE HCL 10 MG/ML VIAL IV ONE (12:00)
[2017-05-25] MEDS ORDERED: SODIUM CHLORID 0.9% 500 ML INJ 500 ML IV ONE (12:00)
[2017-05-25] MEDS ORDERED: ceFAZolin INJ 1,000 MG VIAL IV ONE (12:00)
[2017-05-25] MEDS ORDERED: DEXAMETHASONE SOD PHOS 4 MG/ML VIAL IV ONE (12:00)
[2017-05-25] MEDS ORDERED: ePHEDrine/NS 25 MG/5 ML SYR IV ONE (12:00)
[2017-05-25] MEDS ORDERED: ONDANSETRON HCL 4 MG/2 ML VIAL IV ONE (12:00)
[2017-05-25] MEDS ORDERED: LACTATED RINGER'S 1000 ML INJ 2,000 ML IV ONE (12:00)
[2017-05-25] MEDS ORDERED: cloNIDine HCL 0.1 MG TAB PO/NG PRN (14:00)
[2017-05-25] MEDS ORDERED: NALOXONE HCL 0.4 MG/ML AMP IV PUSH PRN (14:00)
[2017-05-25] MEDS ORDERED: MENTHOL LOZENGE BUCCAL PRN (14:00)
[2017-05-25] MEDS ORDERED: RESP: ALBUTEROL 2.5 MG/3 ML NEB (PRN) INH (14:00)
[2017-05-25] MEDS ORDERED: DEXTROSE 50% IN WATER 50 ML VIAL(D50) IV PUSH PRN (14:00)
[2017-05-25] MEDS ORDERED: MAGNESIUM HYDROXIDE SUSP 30 ML CUP PO PRN (14:00)
[2017-05-25] MEDS: PCA - TOTAL MG DILAUDID DELIVERED PER SHIFT SCH ×2 (14:00→21:40)
[2017-05-25] MEDS ORDERED: ONDANSETRON HCL 4 MG/2 ML VIAL IV PUSH PRN (14:00)
[2017-05-25] MEDS ORDERED: ACETAMINOPHEN 325 MG TAB PO PRN (14:00)
[2017-05-25] MEDS ORDERED: diphenhydrAMINE HCL 50 MG/ML VIAL IV PUSH PRN (14:00)
[2017-05-25] MEDS ORDERED: GLUCAGON 1 MG/ML VIAL OTHER PRN (14:00)
[2017-05-25] MEDS ORDERED: PILL SPLITTER OTHER PRN (15:00)
[2017-05-25] MEDS ORDERED: *HYDROmorphone PF 1 MG VIAL PERIprocedural Use ONLY ONE ×2 (15:17→15:44)
--- NOTE | 2017-05-25 15:19 | RADRPT ---
EXAM DATE/TIME: 05/25/2017 09:55 [facility] COMPARISON: No previous studies available for comparison. INDICATIONS : Lumbar fusion, L5-S1. MEDICAL HISTORY : Unobtainable. SURGICAL HISTORY : Unobtainable. ENCOUNTER: Initial ACUITY: 1 day PAIN SCORE: Non-responsive. LOCATION: Lumbar. FINDINGS: Two view examination was performed. Post surgical changes following laminectomy and posterior fusion at L5-S1 are noted. Satisfactory lumbar alignment is maintained CONCLUSION: Status post L5-S1 fusion Richardson Ruelas MD on May 25, 2017 at 15:15 Board Certified Radiologist. This report was verified electronically.
[2017-05-25] MEDS: HYDROmorphone HCL PCA 6 MG/30 ML IV SCH ×2 (15:25→21:36)
[2017-05-25] MEDS: SODIUM CHLOR 0.9% 1000 ML INJ 1,000 ML IV SCH (15:25)
[2017-05-25] MEDS ORDERED: *MEPERIDINE 25 MG INJ VIAL PERIprocedural Use ONLY ONE (15:32)
[2017-05-25] MEDS ORDERED: DO NOT ADM ANY ANTICOAGULANT DRUGS PRN (15:45)
[2017-05-25] MEDS ORDERED: KETOROLAC TROMETHAMINE 30 MG/ML (IVP) VIAL IM ONE (15:45)
[2017-05-25] MEDS: INSULIN ASPART SUPPLEMENTAL SCALE SQ SCH ×2 (15:47→20:38)
--- NOTE | 2017-05-25 16:12 | PD.OP ---
Operative Report Date of Surgery: May 25, 2017 Preoperative Diagnosis: Recurrent L5-S1 disc herniation (third time) Postoperative Diagnosis: Recurrent L5-S1 disc herniation (Third time) Procedure: L5-S1 REDO bilateral laminectomy, interbody arthrodhesis using PEEK cage and autologous bone graft, L5-S1 instrumental fixation using transpedicular screws and rods, L5-S1 posterolateral fusion using autologous bone graft and demineralized bone matrix. Microsurgical dissection Anesthesia: general Surgeon: Artis Green Marking Clerk(s): Gauri Alvarez Operation and Findings: INDICATIONS FOR THE SURGICAL PROCEDURE Mr. Dahl is a 31 year-old male who presented with intractable mechanical back pain and maciej evidence of S1 lower extremity radiculopathy. he underwent 2 prior surgeries at L5-S1, with temporary resolution of his symptoms. This is his third disk herniation at the same level, on the same size. He has associated scar tissue and loss of disk space height. He failed maximum nonsurgical management including multiple modalities of conservative treatment as well as pain management interventions by an interventional pain specialist. A surgical decompression and arthrodhesis were indicated as a last resort. The [id number] details of the procedure, indications, alternatives, risks and potential complications were fully discussed with the patient. The patient fully understood. All his questions were answered. No guarantees were given. The patient voiced requesting the procedure and provided informed consents. He was offered the alternative of delaying the procedure and continuing with nonsurgical management. DETAILS OF THE SURGICAL PROCEDURE Prior to the procedure, the surgical incision was marked in the preoperative surgical holding room, and the procedure, risks, and potential complications revisited with the patient. Placement of electrodes for intraoperative neurophysiological monitoring was completed. The patient was taken to the operative room, and following induction of general anesthesia, endotracheal intubation was performed. A Johnson catheter, bilateral CHIRAG hose and sequential compression devices were placed and kept throughout the procedure. The patient was positioned prone, over a Tj table over a Reinaldo frame. All pressure in the preoperative surgical holding room points were carefully padded with eggcrate and gel mattress. The eyes were tapped shut after ointment was applied by the anesthesiologist to prevent corneal abrasion. A Camelia hugger was placed over the exposed lower body to maintain control of the core body temperature. The electrophysiological team placed the needles and electrodes in their proper location and baseline SSEP's and motor evoked potentials were registered. The entrance to each pedicles was marked using a C arm. The lumbar region was prepped and draped in the usual sterile fashion. The surgical procedure was performed in several steps as follow: SURGICAL APPROACH Once the patient was positioned, a localizing cross-table lateral x-ray was performed with a C-arm. Two paramedian small incisions were outlined on the skin approximately 3cm from the midline. The skin incisions were made with a # 10 blade. Small bleeders were controlled with the cautery. The dissection was then carried out into deper planes and through the thoracolumbar fascia with a Bovie. The intermuscular septum was identified and the muscles were blunted dissected along the septum. The facets and transverse process of L5 and S1 were exposed and the proper anatomical landmarks were identified. A microsurgical self-retaining retractor was placed on the incision, and a localizing lateralizing cross-table x-ray was performed with an instrument underneath the L5 lamina of the lumbar spine. INSTRUMENTAL FIXATION At this point in the procedure, placement of bilateral transpedicular screws was necessary for stabilization of the spine. Initially, the entry point for the screw was selected anatomically at the junction of the facet, with the transverse process, and the pars interarticularis at L5 and at the sacrum. This was started with a Giamshetti needle followed by the use of a vargas wire. A tap was used to create the threads for the screws. Finally bilateral transpedicular screws were carefully placed bilaterally at L5 and S1 under fluoroscopic visualization. An appropriate purchase was achieved with all screws. The position of each screw was assessed anatomically with an AP, lateral , oblique Xrays. An intraoperative scan view of the spine was then performed using the iso-centric c-arm. Each screw was then assessed electrophysiologically with a nerve stimulator. SURGICAL DECOMPRESSION There was significant mass effect with compression of the neural structures. In order to relieve neural compression, it was necessary to perform a decompressive laminectomy, with decompression of the spinal canal and bilateral lateral recesses by scar tissue and disk herniation. At this point of the procedure the operative microscope was draped in the usual sterile fashion and brought to the field. The rest of the surgical procedure was performed using microdissection technique with the exception of the closure. Under the operating microscope, a bilateral decompressive laminectomy was carried out at L5-S1 as follow: Once the level was confirmed, the margins of the prior laminectomy were exposed. There was extensive scar tissue from the prior surgery. The bony margins were exposed, a laminectomy was performed extending the prior opening using the TPS drill with an AM-8 drill bit. A right subtotal facetectomy had to be performed and the superior free border of the ligamentum flavum was dissected with a ligament dissector and removed with a thin footplate 2 mm Kerrison. The scar tissue was carefully dissected from the dural sac and the S1 nerve root was identified and followed towards its exit in the foramen bilaterally. A bilateral foraminotomy was done with a 3mm Kerrison. There was extensive scar tissue and instability of the disk space L5-S1 from the prior surgeries. The scar tissue was very adherent to the dura. During the dissection small pinhole dural tear was unavoidable Epidural veins located laterally to the dural sac were coagulated with a bipolar and incised with micro scissors. Gentle medial retraction of the dural sac allowed inspection of the disc space. The patient had a very large, recurrent disc extrusion, causing mass effect over the bilateral exiting nerve roots. A near complete facetectomy was necessary, resulting in further mechanical instability. The ligamentum Flavum and scar tissue were very adherent to the dural sac and during the dissection, ans extreme care was taken during the dissection. The exiting nerve roots were identified, and a wide foraminotomy was performed with a Kerrison in their trajectory towards the neural foramen. Epidural veins located laterally to the dural sac were coagulated with the bipolar cautery, and then incised using microscissors. Gentle medial retraction of the dural sac allowed me to expose the disc space for the discectomy. Epidural veins located laterally to the dural sac were coagulated with a bipolar and incised with micro scissors. Gentle medial retraction of the dural sac allowed inspection of the disc space. The patient had a very large, recurrent disc extrusion, causing mass effect over the exiting nerve root. Everything was very scared. A near complete facetectomy was necessary, resulting in further mechanical instability. The ligamentum Flavum and scar tissue were very adherent to the dural sac and during the dissection, and extreme care was taken during the dissection. The exiting nerve roots were identified, and a wide foraminotomy was performed with a Kerrison in their trajectory towards the neural foramen. Epidural veins located laterally to the dural sac were coagulated with the bipolar cautery, and then incised using microscissors. Gentle medial retraction of the dural sac allowed me to expose the disc space for the discectomy. Upon completion of the discectomy, an excellent decompression of the neural structures was achieved. INTERBODY ARTHRODHESIS In order to correct the narrowing of the disk space and maintain distraction of the space, and to achieve a solid interbody fusion, it was necessary the insertion of an interbody device into the disk space. Otherwise, the disk space would collapse, compromising the result of the surgical procedure. At this point of the procedure, the annulus fibrosus of the disk was carefully coagulated with a bipolar cautery and incised using an 11 bladed knife. Then, a microdiscectomy was carried out in a standard fashion using a combination of straight and up-biting pituitary forceps. A reverse angle curette was applied underneath the posterior longitudinal ligament, and used to push the disk fragments into the disk space, so they can be safely removed with a pituitary forceps. Once the discectomy was completed, it was necessary to decorticate the endplates, in order to eliminate the cartilaginous endplate and to expose healthy bone appropriate to perform the interbody fusion. The endplates at L5- S1 were then thoroughly decorticated using increasing size bone oral and ring curets, eliminating the cartilaginous fragments from both, the superior and inferior endplates. A disk space distractor was applied to the pedicle screws and gentle distraction was applied. This maneuver was assisted by the use of a disk distractor. Increased motility was noted at the disk, which was consistent with instability due to facet arthropathy. Once a thorough preparation of the disk space was achieved, the disk space was irrigated with antibiotic solution, and the interbody fusion was performed by carefully impacting PEEK cages filled with autologous iliac crest bone graft. The use of several shoe impactors with different angulation, allowed me for an excellent, proper position of the interbody cage. A solid position of the cage with good purchase was achieved. The position of the cages were assessed anatomically with a probe and radiologically with the C-arm. POSTEROLATERAL FUSION The posterolateral fusion is a critical component to the procedure, to prevent future fatigue and failure of the instrumental fixation. Initially, the transverse processes of the vertebral bodies, lateral surface of the facets and the lateral gutters of the spine were carefully cleaned, eliminating all soft tissue and muscle attachments. The area was then irrigated with a large amount of antibiotic solution. Subsequently, the transverse processes, lateral surface of the facets, and lateral gutters of the spine were thoroughly decorticated using the TPS drill with a 5mm cutting zach, exposing cancellous bone, in preparation for the posterolateral fusion. The incision was again irrigated with antibiotic solution. Then, the posterolateral fusion was then performed by carefully packing the lateral gutters of the spine at L5-S1 with autologous iliac crest bone combined with demineralized bone matrix. I packed as much bone as possible. COMPLETION OF THE INSTRUMENTATION AND CLOSURE A single 6-0 Prolene suture was used in a figure 8 fashion to close the dural tear.The area was sealed using Duraseal. The rods were brought to the field, applied to all the screws, and the screw caps were sequentially applied. Compression was performed between the pedicle screws, and final tightening of the screws was completed using a torque wrench. A cross-link was used to connect the rods, in order to increase the stability of the construct. The cross link was secured using a torque wrench previously calibrated. The incision was again thoroughly irrigated with several liters of antibiotic solution, and hemostasis secured with the bipolar cautery. A Valsalva Maneuver performed by the anesthesiologist failed to show any evidence of cerebrospinal fluid leak or bleeding. A 7 mm Tj-Parmar drain was left in the epidural space and externalized through a separate stab incision. The incision was then closed in planes. 0 Vicryl was used in an interrupted fashion to close the thoracolumbar fascia and the superficial fascia. The subcutaneous tissue was then approximated using 3-0 Vicryl in an interrupted fashion. Special care was taken to avoid space. The skin was then closed with 4-0 Vicryl in a running, subcuticular fashion. Each plane of closure was irrigated with antibiotic solution. At the end of the procedure the sponge, needle and instrument counts were all correct. Estimated blood loss was 200-250 cc. No blood transfusion was given. The entire procedure was performed using continuous electrophysiological monitoring of the somatosensorial evoked potentials and EMG. The patient received prophylactic antibiotics. The patient was then extubated and transferred to the recovery room in stable condition. Artis Green MD May 25, 2017 16:12
[2017-05-25] MEDS ORDERED: HYDROmorphone HCL PF 2 MG/ML VIAL IV PUSH SCH (16:15)
[2017-05-25] MEDS ORDERED: HYDROmorphone HCL PF 2 MG/ML VIAL IV PUSH ONE (16:15)
--- NOTE | 2017-05-25 17:00 | PD.CONS ---
HPI Service [facility] Consult Requested By Neurosurgery Reason for Consult Medical management Primary Care Physician No Primary Care Physician Diagnoses: (1) Herniation of intervertebral disc between L5 and S1 History of Present Illness Mr. Dahl is a 31-year-old male with a history of chronic low back pain, previous surgeries at L5-S1 2 who underwent L5-S1 redo bilateral laminectomy, interbody arthrodesis today 05/25/2017. This is his third disc herniation at the same level. Despite maximum nonsurgical management, he remains symptomatic with prompted this consideration of surgical intervention. Patient was seen in PACU after surgery. At the time of this interview, patient complains of significant pain. 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 No chest pain, shortness of breath, fever or chills. Denies any changes in bowel or bladder habits. Review of Systems Except as stated in HPI: all other systems reviewed are Neg Past Family Social History Allergies: Coded Allergies: tramadol (Unverified Allergy, Severe, HEADACHES, 05/25/17) Past Medical History Chronic low back pain, L5-S1 disc herniation Past Surgical History Two surgical intervention at L5-S1 Right ankle surgery Reported Medications Patient only takes pain medication at home. Family History No family history of premature heart disease, diabetes or cancer. Social History Patient quit smoking before this surgery. Denies using alcohol or illicit drugs. Physical Exam Vital Signs Vital Signs Date Time Temp Pulse Resp B/P (MAP) Pulse Ox O2 Delivery O2 Flow Rate FiO2 05/25/17 16:45 99 12 111/56 (74) 97 05/25/17 16:30 111 12 110/59 (76) 97 05/25/17 16:15 116 16 112/58 (76) 97 05/25/17 16:00 103 14 116/62 (80) 96 05/25/17 15:45 116 12 120/61 (80) 97 05/25/17 15:30 118 12 121/61 (81) 97 05/25/17 15:15 116 11 119/58 (78) 95 Nasal Cannula 3 05/25/17 15:04 98.5 118 14 122/61 (81) 96 Nasal Cannula 3 05/25/17 07:33 99.0 93 20 131/83 (99) 96 Physical Exam GENERAL: This is a well-nourished, well-developed patient. Appears to be in mild distress due to pain. SKIN: No rashes, ecchymoses or lesions. Warm and dry. HEAD: Atraumatic. Normocephalic. No temporal or scalp tenderness. EYES: Pupils equal round and reactive. No injection or drainage. ENT: Nose without bleeding, purulent drainage or septal hematoma. Airway patent. NECK: Trachea midline. No lymphadenopathy. Supple, nontender, no meningeal signs. CARDIOVASCULAR: Regular rhythm, tachycardic without murmurs, gallops, or rubs. No JVD. RESPIRATORY: Clear to auscultation. Breath sounds equal bilaterally. No wheezes , rales, or rhonchi. GASTROINTESTINAL: Abdomen soft, non-tender, nondistended. No guarding. MUSCULOSKELETAL: Extremities without clubbing, cyanosis, or edema. NEUROLOGICAL: Awake and alert. Cranial nerves II through XII intact. No focal neurological deficits. Normal speech. Imaging Last Impressions Lumbar Spine X-Ray 05/25/17 0000 Signed Impressions: Service Date/Time: Thursday, May 25, 2017 09:55 - CONCLUSION: Status post L5-S1 fusion Richardson Ruelas MD Assessment and Plan Problem List: (1) Herniation of intervertebral disc between L5 and S1 ICD Code: M51.27 - Other intervertebral disc displacement, lumbosacral region (2) Status post laminectomy ICD Code: Z98.890 - Other specified postprocedural states Status: Acute Assessment and Plan Mr. Dahl is a pleasant 31-year-old male with a history of L5-S1 disc herniation, surgeries who underwent a third surgery at L5-S1 on 2016. Hospitalist service was consulted by neurosurgery for medical management. - L5-S1 disc herniation - s/p Laminectomy - Continue pain management with Dilaudid AIRCRA[employer]CH[employer] pump, Toradol IV, Soma. - After 24 hours of AIRCRAFT MECH[employer] pump, consider switching to oral pain medications such as acetaminophen, Percocet or [place], breakthrough pain medication. - Continue gabapentin 600 mg by mouth 3 times a day. - Continue bowel regimen - Tachycardia - likely due to pain. We'll continue to monitor. - Hypotension - blood pressure 94/51. - Continue IV normal saline 100cc/hour. - If hypertension is persistent, we'll consider providing bolus normal saline. Full code. SCDs. Thank you for the consult. We'll continue to follow this patient with you. Alanna Chavez DO May 25, 2017 17:00
[2017-05-25] MEDS ORDERED: KETOROLAC TROMETHAMINE 30 MG/ML (IVP) VIAL ONE (17:03)
[2017-05-25] MEDS: ceFAZolin 2 GM PREMIX 50 ML IV SCH (17:40)
[2017-05-25] MEDS ORDERED: CYCLOBENZAPRINE HCL 10 MG TAB PO SCH (18:00)
[2017-05-25] MEDS: GABAPENTIN 300 MG CAP PO SCH (18:00)
[2017-05-25] MEDS ORDERED: KETOROLAC TROMETHAMINE 30 MG/ML (IVP) VIAL IV PUSH SCH (18:00)
[2017-05-25] MEDS: MORPHINE SULFATE 2 MG/ML INJ IV PRN ×2 (20:35→22:24)
[2017-05-25 20:40] VITALS: BP 121/64; PULSE 98; RESP 17; TEMP 97.6; O2SAT 98
[2017-05-25] MEDS: DOCUSATE SODIUM 100 MG CAP PO SCH (21:00)
[2017-05-25] MEDS: KETOROLAC TROMETHAMINE 30 MG/ML (IVP) VIAL IV PUSH SCH (22:00)
[2017-05-25] MEDS: CARISOPRODOL 350 MG TAB PO PRN (23:18)
[2017-05-25] MEDS ORDERED: HYDROmorphone HCL PF 2 MG/ML VIAL IV PRN (23:45)
[2017-05-26] MEDS: HYDROmorphone HCL PF 2 MG/ML VIAL IV PRN ×6 (00:36→20:22)
[2017-05-26 00:40] VITALS: BP 130/76; PULSE 90; RESP 19; TEMP 98.7; O2SAT 98
[2017-05-26] MEDS: SODIUM CHLOR 0.9% 1000 ML INJ 1,000 ML IV SCH (01:00)
[2017-05-26] MEDS: ceFAZolin 2 GM PREMIX 50 ML IV SCH ×2 (02:00→09:44)
[2017-05-26] MEDS: HYDROmorphone HCL PCA 6 MG/30 ML IV SCH ×5 (02:07→20:36)
[2017-05-26] MEDS: KETOROLAC TROMETHAMINE 30 MG/ML (IVP) VIAL IV PUSH SCH ×4 (04:00→21:58)
[2017-05-26 04:30] VITALS: BP 116/58; PULSE 99; RESP 18; TEMP 97.7; O2SAT 99
[2017-05-26] MEDS: PCA - TOTAL MG DILAUDID DELIVERED PER SHIFT SCH ×3 (06:00→21:58)
[2017-05-26 07:31] LABS: AUTOMATED NEUTROPHIL # 12.6 TH/MM3 (1.8-7.7); BASOPHIL % 0.1 % (0.0-2.0); HEMATOCRIT 38.2 % (39.0-51.0); HEMO FLAGS DIFF FINAL; LYMPH % 9.4 % (9.0-44.0); LYMPHOCYTE # 1.4 TH/MM3 (1.0-4.8); MEAN CELL VOLUME 84.8 FL (80.0-100.0); MEAN CORPUSCULAR HEMOGLOBIN 29.1 PG (27.0-34.0); MEAN CORPUSCULAR HGB CONC 34.4 % (32.0-36.0); MONO % 7.4 % (0.0-8.0); NEUT % 83.1 % (16.0-70.0); PLATELET COUNT 209 TH/MM3 (150-450); RED BLOOD COUNT 4.51 MIL/MM3 (4.50-5.90); RED CELL DISTRIBUTION WIDTH 12.4 % (11.6-17.2); WHITE BLOOD COUNT 15.2 TH/MM3 (4.0-11.0)
[2017-05-26 07:53] LABS: BICARBONATE 25.5 MEQ/L (21.0-32.0)
[2017-05-26] MEDS: INSULIN ASPART SUPPLEMENTAL SCALE SQ SCH ×4 (08:00→21:00)
[2017-05-26 08:21] VITALS: BP 122/59; PULSE 102; RESP 20; TEMP 98; O2SAT 98
[2017-05-26] MEDS: DOCUSATE SODIUM 100 MG CAP PO SCH ×2 (08:31→20:22)
[2017-05-26] MEDS: PANTOPRAZOLE SOD 40 MG DELAYED RELEASE TAB PO SCH (08:31)
[2017-05-26] MEDS: GABAPENTIN 300 MG CAP PO SCH ×3 (08:32→17:37)
[2017-05-26] MEDS: CHLORHEXIDINE GLUCONATE 2 % 1 PACK (2 CLOTHS)(extra cloths) TOPICAL SCH (08:39)
--- NOTE | 2017-05-26 09:05 | HHI.PR ---
Subjective Remarks Patient is doing well. Complains of 8 out of 10 back pain. No fever, chills. Ate all of his breakfast. Objective Vitals Vital Signs Date Time Temp Pulse Resp B/P (MAP) Pulse Ox O2 Delivery O2 Flow Rate FiO2 05/26/17 08:21 98.0 102 20 122/59 (80) 98 05/26/17 06:00 15 05/26/17 04:30 97.7 99 18 116/58 (77) 99 05/26/17 02:07 17 05/26/17 00:40 98.7 90 19 130/76 (94) 98 05/25/17 21:40 16 05/25/17 21:36 16 05/25/17 20:40 97.6 98 17 121/64 (83) 98 05/25/17 18:15 99 13 119/63 (81) 96 05/25/17 17:45 98.5 99 12 94/51 (65) 97 Nasal Cannula 3 05/25/17 17:30 90 18 109/60 (76) 97 05/25/17 17:00 90 15 108/59 (75) 98 05/25/17 16:45 99 12 111/56 (74) 97 05/25/17 16:30 111 12 110/59 (76) 97 05/25/17 16:15 116 16 112/58 (76) 97 05/25/17 16:00 103 14 116/62 (80) 96 05/25/17 15:45 116 12 120/61 (80) 97 05/25/17 15:30 118 12 121/61 (81) 97 05/25/17 15:25 12 05/25/17 15:15 116 11 119/58 (78) 95 Nasal Cannula 3 05/25/17 15:04 98.5 118 14 122/61 (81) 96 Nasal Cannula 3 I/O 05/25/17 05/25/17 05/25/17 05/26/17 05/26/17 05/26/17 07:00 15:00 23:00 07:00 15:00 23:00 Intake Total 2500 ml 1000 ml 1000 ml Output Total 950 ml 1200 ml 900 ml Balance 1550 ml -200 ml 100 ml Intake Oral 1000 ml 1000 ml Other 2500 ml Output Urine Total 700 ml 1200 ml 900 ml Estimated Blood Loss 250 ml # Bowel Movements 0 Result Diagram: 05/26/1760505/26/17605 A/P Problem List: (1) Herniation of intervertebral disc between L5 and S1 ICD Code: M51.27 - Other intervertebral disc displacement, lumbosacral region (2) Status post laminectomy ICD Code: Z98.890 - Other specified postprocedural states Status: Acute Assessment and Plan Mr. Dahl is a pleasant 31-year-old male with a history of L5-S1 disc herniation, surgeries who underwent a third surgery at L5-S1 on 2016. Hospitalist service was consulted by neurosurgery for medical management. 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 - After 24 hours of SEISMOGRAPH OPERATOR HELPER pump, consider switching to oral pain medications such as acetaminophen, Percocet or [place], breakthrough pain medication. - Continue gabapentin 600 mg by mouth 3 times a day. - Continue bowel regimen - Tachycardia - HR around 100. Likely due to pain. - Hypotension, resolved. - blood pressure within normal range - around 120s/60s. - Will d/c IV normal saline 100cc/hour. Full code. SCDs. Alanna Chavez DO May 26, 2017 9:05 am
[2017-05-26 12:14] VITALS: BP 108/55; PULSE 108; RESP 20; TEMP 98.5; O2SAT 94
[2017-05-26] MEDS ORDERED: HYDROmorphone HCL PF 2 MG/ML VIAL IV PRN (12:45)
--- NOTE | 2017-05-26 12:45 | HHI.NSPN ---
(Noelle Hare) Note Status Status: Progress Note (Artis Green MD) Interval History Interval History 31 y/o male s/p redo L5-S1 laminectomy with interbody arthrodesis, posterolateral fixation using transpedicular screws and rods on 05/25/1705/26: continues to c/o severe postoperative pain despite dilauded COUNTER STACKER, and breakthrough IV Dilaudid q 4 not controlling. (Noelle Hare) Labs, Micro, & Vital Signs Results Date Time Temp Pulse Resp B/P (MAP) Pulse Ox O2 Delivery O2 Flow Rate FiO2 05/26/17 12:14 98.5 108 20 108/55 (72) 94 05/26/17 09:45 20 05/26/17 08:21 98.0 102 20 122/59 (80) 98 05/26/17 06:00 15 05/26/17 04:30 97.7 99 18 116/58 (77) 99 05/26/17 02:07 17 05/26/17 00:40 98.7 90 19 130/76 (94) 98 05/25/17 21:40 16 05/25/17 21:36 16 05/25/17 20:40 97.6 98 17 121/64 (83) 98 05/25/17 18:15 99 13 119/63 (81) 96 05/25/17 17:45 98.5 99 12 94/51 (65) 97 Nasal Cannula 3 05/25/17 17:30 90 18 109/60 (76) 97 05/25/17 17:00 90 15 108/59 (75) 98 05/25/17 16:45 99 12 111/56 (74) 97 05/25/17 16:30 111 12 110/59 (76) 97 05/25/17 16:15 116 16 112/58 (76) 97 05/25/17 16:00 103 14 116/62 (80) 96 05/25/17 15:45 116 12 120/61 (80) 97 05/25/17 15:30 118 12 121/61 (81) 97 05/25/17 15:25 12 05/25/17 15:15 116 11 119/58 (78) 95 Nasal Cannula 3 05/25/17 15:04 98.5 118 14 122/61 (81) 96 Nasal Cannula 3 05/27/17 07:00 Intake Total 50 ml Balance 50 ml Constitutional Vital Signs Date Time Temp Pulse Resp B/P (MAP) Pulse Ox O2 Delivery O2 Flow Rate FiO2 05/26/17 12:14 98.5 108 20 108/55 (72) 94 05/26/17 09:45 20 05/26/17 08:21 98.0 102 20 122/59 (80) 98 05/26/17 06:00 15 05/26/17 04:30 97.7 99 18 116/58 (77) 99 05/26/17 02:07 17 05/26/17 00:40 98.7 90 19 130/76 (94) 98 05/25/17 21:40 16 05/25/17 21:36 16 05/25/17 20:40 97.6 98 17 121/64 (83) 98 05/25/17 18:15 99 13 119/63 (81) 96 05/25/17 17:45 98.5 99 12 94/51 (65) 97 Nasal Cannula 3 05/25/17 17:30 90 18 109/60 (76) 97 05/25/17 17:00 90 15 108/59 (75) 98 05/25/17 16:45 99 12 111/56 (74) 97 05/25/17 16:30 111 12 110/59 (76) 97 05/25/17 16:15 116 16 112/58 (76) 97 05/25/17 16:00 103 14 116/62 (80) 96 05/25/17 15:45 116 12 120/61 (80) 97 05/25/17 15:30 118 12 121/61 (81) 97 05/25/17 15:25 12 05/25/17 15:15 116 11 119/58 (78) 95 Nasal Cannula 3 05/25/17 15:04 98.5 118 14 122/61 (81) 96 Nasal Cannula 3 05/27/17 07:00 Intake Total 50 ml Balance 50 ml (Noelle Hare) Review of Systems Musculoskeletal: COMPLAINS OF: Back pain (Noelle Hare) Physical Exam Mr. Dahl is alert, but in moderate distress due to surgical pain. Speech is fluent. Cranial nerve examination: pupils equal, round, and reactive to light. Extra- ocular movements are intact. Facial motor are normal and symmetrical. Neck is soft and supple. Muscle strength is 5/5 in all muscle groups of both upper extremities including deltoid, biceps, triceps, brachioradialis, wrist extension and program assistant. In the lower extremities, strength is 5/5 in both iliopsoas, quadriceps, hamstrings, plantar flexion, dorsiflexion, and extensor hallicus longus. Sensory examination is intact to light touch in lower extremities with residual paresthesias following S1 distribution. bilateral plantar flexion response. Cerebellar examination is intact to [id number] test. (Noelle Hare) Medications Current Medications Current Medications Medications (Trade) Dose Ordered Sig/Radhames Route PRN Reason Start Time Stop Time Status Last Admin Dose Admin Vancomycin HCl 1000 mg/Sodium Chloride 250 ml @ 250 mls/hr UNHAIRING INSPECTOR IV 05/25/17 07:00 05/28/17 06:59 05/25/17 11:35 Chlorhexidine Gluconate (Chlorhexidine 2% Cloth) 3 pack DAILY TOPICAL 05/25/17 09:00 05/27/17 09:01 Lactated Ringer's 1,000 ml @ 30 mls/hr Q24H PRN IV SEE LABEL COMMENTS 05/25/17 07:00 05/28/17 06:59 05/25/17 07:15 Sodium Chloride 500 ml @ 30 mls/hr [id number] PRN IV SEE LABEL COMMENTS 05/25/17 07:00 05/28/17 06:59 Metoprolol Tartrate (Lopressor) 25 mg UNHAIRING INSPECTOR PRN PO SEE LABEL COMMENTS 05/25/17 07:00 05/28/17 06:59 Povidone Iodine (Betadine 5% Antisepsis Kit) 1 applic UNHAIRING INSPECTOR PRN EACH NARE SEE LABEL COMMENTS 05/25/17 07:00 05/28/17 06:59 05/25/17 07:30 Chlorhexidine Gluconate (Chlorhexidine 2% Cloth) 3 pack UNHAIRING INSPECTOR PRN TOPICAL SEE LABEL COMMENTS 05/25/17 07:00 05/28/17 06:59 05/25/17 06:45 Docusate Sodium (Colace) 100 mg BID PO 05/25/17 21:00 05/26/17 08:31 Magnesium Hydroxide (Milk Of Magnesia Liq) 30 ml DAILY PRN PO CONSTIPATION 05/25/17 14:00 Pantoprazole Sodium (Protonix) 40 mg DAILY PO 05/26/17 09:00 05/26/17 08:31 Ondansetron HCl (Zofran Inj) 4 mg Q6H PRN IV PUSH NAUSEA OR VOMITING 05/25/17 14:00 Clonidine (Catapres) 0.1 mg Q6H PRN PO/NG SYS BP GREATER THAN 170 MMHG 05/25/17 14:00 Acetaminophen (Tylenol) 650 mg Q4H PRN PO TEMPERATURE > 101.5 F 05/25/17 14:00 Menthol ([place] Nathaniel) 1 lozenge UNSCH PRN BUCCAL SORE THROAT 05/25/17 14:00 Albuterol Sulfate (Albuterol Neb) 2.5 mg Q4HR NEB PRN INH WHEEZING 05/25/17 14:00 Dextrose (D50w (Vial) Inj) 50 ml UNSCH PRN IV PUSH HYPOGLYCEMIA-SEE COMMENTS 05/25/17 14:00 Glucagon (Glucagon Inj) 1 mg UNSCH PRN OTHER HYPOGLYCEMIA-SEE COMMENTS 05/25/17 14:00 Insulin Aspart (NovoLOG SUPPLEMENTAL SCALE) 1 ACHS SLIDING SCALE SQ 05/25/17 17:00 Naloxone HCl (Narcan Inj) 0.4 mg UNSCH PRN IV PUSH RESPIRATORY RATE LESS THAN 10 05/25/17 14:00 Diphenhydramine HCl (Benadryl Inj) 25 mg Q6H PRN IV PUSH ITCHING 05/25/17 14:00 Hydromorphone HCl (Dilaudid COUNTER STACKER Inj) 6 mg UNSCH IV 05/25/17 14:00 05/26/17 09:45 COUNTER STACKER Dosage Infused (Pha) 1 Q8HR .XX 05/25/17 14:00 05/26/17 06:00 Miscellaneous (Pill Splitter) 1 ea UNSCH PRN OTHER SEE LABEL COMMENTS 05/25/17 15:00 Miscellaneous Information ALL NURSING DEPARTME... UNSCH PRN .XX SEE LABEL COMMENTS 05/25/17 15:45 05/26/17 15:44 Gabapentin (Neurontin) 600 mg TID PO 05/25/17 18:00 05/26/17 12:13 Carisoprodol (Soma) 350 mg Q6H PRN PO muscle spams 05/25/17 18:00 Ketorolac Tromethamine (Toradol Inj) 30 mg Q6H IV PUSH 05/25/17 22:00 05/26/17 22:00 05/26/17 09:45 Hydromorphone HCl (Dilaudid Pf Inj) 2 mg Q4H PRN IV PAIN 6-10 05/25/17 23:45 05/26/17 09:10 Hydromorphone HCl (Dilaudid Pf Inj) 1 mg Q3HR PRN IV PAIN 1-5 05/26/17 12:45 UNV (Noelle Hare) Medical Decision Making MDM Remarks 31 y/o male s/p redo L5-S1 decompressive laminectomy, with interbody arthrodesis, posterolateral fixation with transpedicular screws and rods , repair of small intraoperative dural tear severe postoperative pain, patient has high level of tolerance to narcotics and not being well controlled on current pain regimen (Noelle Hare) Plan Plan Remarks cont COUNTER STACKER pump per Dr. Green changed additional Dilauded IV q 3 hours prn on Neurontin 600 tid ok HOB upto 20 degrees, remain bed rest today SCDs and TEDs for dvt prophylaxis (Noelle Hare) Attending Statement The exam, history, and the medical decision-making described in the above note were completed with the assistance of the mid-level provider. I reviewed and agree with the findings presented. I attest that I had a [id number] encounter with the patient on the same day, and personally performed and documented my assessment and findings in the medical record. (Artis Green MD) Noelle Hare May 26, 2017 12:45 Artis Green MD May 26, 2017 12:52
[2017-05-26 17:04] VITALS: BP 138/76; PULSE 73; RESP 20; TEMP 98.1; O2SAT 94
[2017-05-26 20:37] VITALS: BP 130/73; PULSE 82; RESP 18; TEMP 98.3; O2SAT 97
[2017-05-27] MEDS: HYDROmorphone HCL PF 2 MG/ML VIAL IV PRN ×8 (00:15→22:31)
[2017-05-27] MEDS: HYDROmorphone HCL PCA 6 MG/30 ML IV SCH ×5 (01:04→18:28)
[2017-05-27 01:07] VITALS: BP 136/75; PULSE 95; RESP 18; TEMP 98.4; O2SAT 96
[2017-05-27] MEDS: CARISOPRODOL 350 MG TAB PO PRN (03:28)
[2017-05-27 05:08] VITALS: BP 128/69; PULSE 90; RESP 18; TEMP 98.3; O2SAT 97
[2017-05-27] MEDS: PCA - TOTAL MG DILAUDID DELIVERED PER SHIFT SCH ×3 (06:00→22:00)
[2017-05-27] MEDS: INSULIN ASPART SUPPLEMENTAL SCALE SQ SCH ×4 (08:00→21:00)
[2017-05-27 08:30] VITALS: BP 128/73; PULSE 86; RESP 20; TEMP 98.5; O2SAT 94
[2017-05-27] MEDS: CHLORHEXIDINE GLUCONATE 2 % 1 PACK (2 CLOTHS)(extra cloths) TOPICAL SCH (09:00)
[2017-05-27] MEDS: DOCUSATE SODIUM 100 MG CAP PO SCH ×2 (09:08→21:19)
[2017-05-27] MEDS: GABAPENTIN 300 MG CAP PO SCH ×3 (09:08→18:26)
[2017-05-27] MEDS: PANTOPRAZOLE SOD 40 MG DELAYED RELEASE TAB PO SCH (09:08)
--- NOTE | 2017-05-27 11:16 | HHI.FF ---
Face to Face Verification Diagnosis: (1) Herniation of intervertebral disc between L5 and S1 (2) Status post laminectomy Physical Therapy Order: Evaluate and Treat, Improve ambulation, Strength and gait training Occupational Therapy Order: Evaluate and Treat, Improve ADL, Gross motor coordination, Fine motor coordination Home Health Nursing Order: Medical education Signs/symptoms of disease process Medication education-adverse effect Wound care and dressing changes Nursing assessment with vital signs I have seen patient Dylan Dahl on 05/27/17. My clinical findings support the need for the requested home health care services because: Ltd mobility - disease progression Deconditioned w/ increased weakness Limited ability to care for self High risk of falls Infection w/ risk of complications I certify that my clinical findings support that this patient is homebound because: Post-op weakness Unsteady gait/balance Unsafe to leave home unassisted Need for psychosocial assistance Unable to use public transportation Alanna Chavez DO May 27, 2017 11:16 am
[2017-05-27 11:29] VITALS: BP 147/87; PULSE 108; RESP 20; TEMP 97.7; O2SAT 94
[2017-05-27] MEDS: ENOXAPARIN SODIUM 40 MG/0.4 ML SYRINGE SQ SCH (12:22)
--- NOTE | 2017-05-27 13:31 | HHI.NSPN ---
Note Status Status: Progress Note Interval History Interval History 31 y/o male s/p redo L5-S1 laminectomy with interbody arthrodesis, posterolateral fixation using transpedicular screws and rods on 05/25/1705/26: continues to c/o severe postoperative pain despite dilauded DIRECTOR AMBULATORY, and breakthrough IV Dilaudid q 4 not controlling. 05/27: radicular pain resolved, persistent moderate to severe surgical pain with movement. Labs, Micro, & Vital Signs Results Date Time Temp Pulse Resp B/P (MAP) Pulse Ox O2 Delivery O2 Flow Rate FiO2 05/27/17 13:16 20 05/27/17 13:13 20 05/27/17 11:29 97.7 108 20 147/87 (107) 94 05/27/17 09:53 20 05/27/17 08:30 98.5 86 20 128/73 (91) 94 05/27/17 06:00 14 05/27/17 05:30 14 05/27/17 05:08 98.3 90 18 128/69 (88) 97 05/27/17 01:07 98.4 95 18 136/75 (95) 96 05/27/17 01:04 14 05/26/17 21:58 14 05/26/17 20:37 98.3 82 18 130/73 (92) 97 05/26/17 20:36 14 05/26/17 17:04 98.1 73 20 138/76 (96) 94 05/26/17 16:54 20 05/26/17 16:24 20 Constitutional Vital Signs Date Time Temp Pulse Resp B/P (MAP) Pulse Ox O2 Delivery O2 Flow Rate FiO2 05/27/17 13:16 20 05/27/17 13:13 20 05/27/17 11:29 97.7 108 20 147/87 (107) 94 05/27/17 09:53 20 05/27/17 08:30 98.5 86 20 128/73 (91) 94 05/27/17 06:00 14 05/27/17 05:30 14 05/27/17 05:08 98.3 90 18 128/69 (88) 97 05/27/17 01:07 98.4 95 18 136/75 (95) 96 05/27/17 01:04 14 05/26/17 21:58 14 05/26/17 20:37 98.3 82 18 130/73 (92) 97 05/26/17 20:36 14 05/26/17 17:04 98.1 73 20 138/76 (96) 94 05/26/17 16:54 20 05/26/17 16:24 20 Review of Systems Constitutional: DENIES: Fever, Chills Cardiovascular: DENIES: Chest pain Gastrointestinal: DENIES: Abdominal pain, Vomiting Musculoskeletal: COMPLAINS OF: Back pain Neurologic: DENIES: Headache Physical Exam Mr. Dahl is alert, appears more comfortable in bed today when laying still Wound with Optifoam dressing, clean and dry. Cranial nerve examination: pupils equal, round, and reactive to light. Extra- ocular movements are intact. Facial motor are normal and symmetrical. Neck is soft and supple. Muscle strength is 5/5 in both iliopsoas, quadriceps, hamstrings, plantar flexion, dorsiflexion, and extensor hallicus longus. Sensory examination is intact to light touch in lower extremities with residual paresthesias following S1 distribution. bilateral plantar flexion response. No ankle clonus Medications Current Medications Current Medications Medications (Trade) Dose Ordered Sig/Radhames Route PRN Reason Start Time Stop Time Status Last Admin Dose Admin Vancomycin HCl 1000 mg/Sodium Chloride 250 ml @ 250 mls/hr SPECIAL EDUCATION DIRECTOR IV 05/25/17 07:00 05/28/17 06:59 05/25/17 11:35 Lactated Ringer's 1,000 ml @ 30 mls/hr Q24H PRN IV SEE LABEL COMMENTS 05/25/17 07:00 05/28/17 06:59 05/25/17 07:15 Sodium Chloride 500 ml @ 30 mls/hr [id number] PRN IV SEE LABEL COMMENTS 05/25/17 07:00 05/28/17 06:59 Metoprolol Tartrate (Lopressor) 25 mg SPECIAL EDUCATION DIRECTOR PRN PO SEE LABEL COMMENTS 05/25/17 07:00 05/28/17 06:59 Povidone Iodine (Betadine 5% Antisepsis Kit) 1 applic SPECIAL EDUCATION DIRECTOR PRN EACH NARE SEE LABEL COMMENTS 05/25/17 07:00 05/28/17 06:59 05/25/17 07:30 Chlorhexidine Gluconate (Chlorhexidine 2% Cloth) 3 pack SPECIAL EDUCATION DIRECTOR PRN TOPICAL SEE LABEL COMMENTS 05/25/17 07:00 05/28/17 06:59 05/25/17 06:45 Docusate Sodium (Colace) 100 mg BID PO 05/25/17 21:00 05/27/17 09:08 Magnesium Hydroxide (Milk Of Magnesia Liq) 30 ml DAILY PRN PO CONSTIPATION 05/25/17 14:00 Pantoprazole Sodium (Protonix) 40 mg DAILY PO 05/26/17 09:00 05/27/17 09:08 Ondansetron HCl (Zofran Inj) 4 mg Q6H PRN IV PUSH NAUSEA OR VOMITING 05/25/17 14:00 Clonidine (Catapres) 0.1 mg Q6H PRN PO/NG SYS BP GREATER THAN 170 MMHG 05/25/17 14:00 Acetaminophen (Tylenol) 650 mg Q4H PRN PO TEMPERATURE > 101.5 F 05/25/17 14:00 Menthol ([place] Nathaniel) 1 lozenge UNSCH PRN BUCCAL SORE THROAT 05/25/17 14:00 Albuterol Sulfate (Albuterol Neb) 2.5 mg Q4HR NEB PRN INH WHEEZING 05/25/17 14:00 Dextrose (D50w (Vial) Inj) 50 ml UNSCH PRN IV PUSH HYPOGLYCEMIA-SEE COMMENTS 05/25/17 14:00 Glucagon (Glucagon Inj) 1 mg UNSCH PRN OTHER HYPOGLYCEMIA-SEE COMMENTS 05/25/17 14:00 Insulin Aspart (NovoLOG SUPPLEMENTAL SCALE) 1 ACHS SLIDING SCALE SQ 05/25/17 17:00 Naloxone HCl (Narcan Inj) 0.4 mg UNSCH PRN IV PUSH RESPIRATORY RATE LESS THAN 10 05/25/17 14:00 Diphenhydramine HCl (Benadryl Inj) 25 mg Q6H PRN IV PUSH ITCHING 05/25/17 14:00 Hydromorphone HCl (Dilaudid DIRECTOR AMBULATORY Inj) 6 mg UNSCH IV 05/25/17 14:00 05/27/17 13:13 DIRECTOR AMBULATORY Dosage Infused (Pha) 1 Q8HR .XX 05/25/17 14:00 12/15/17 13:16 Miscellaneous (Pill Splitter) 1 ea UNSCH PRN OTHER SEE LABEL COMMENTS 05/25/17 15:00 Gabapentin (Neurontin) 600 mg TID PO 05/25/17 18:00 05/27/17 12:19 Carisoprodol (Soma) 350 mg Q6H PRN PO muscle spams 05/25/17 18:00 05/27/17 03:28 Hydromorphone HCl (Dilaudid Pf Inj) 1 mg Q3HR PRN IV PAIN 1-5 05/26/17 12:45 Hydromorphone HCl (Dilaudid Pf Inj) 2 mg Q3HR PRN IV PAIN 6-10 05/26/17 12:45 05/27/17 12:18 Enoxaparin Sodium (Lovenox Inj) 40 mg Q24H SQ 05/27/17 11:00 05/27/17 12:22 Temazepam (Restoril) 15 mg HS PRN PO INSOMNIA 05/27/17 10:45 Medical Decision Making MDM Remarks 31 y/o male s/p redo L5-S1 decompressive laminectomy, with interbody arthrodesis, posterolateral fixation with transpedicular screws and rods , repair of small intraoperative dural tear mod to severe postoperative pain, patient has high level of tolerance to narcotics, postoperative pain slowly improving Plan Plan Remarks cont DIRECTOR AMBULATORY pump, cont Dilauded IV q 3 hours prn for breakthrough on Neurontin 600 tid increase HOB upto 30 degrees, remain bed rest today will start OOB tomorrow with LSO brace, start Physical Therapy start sq lovenox daily, cont SCDs and TEDs for dvt prophylaxis medical mgt following, appreciate assistance Noelle Hare May 27, 2017 13:31
--- NOTE | 2017-05-27 14:50 | HHI.PR ---
Subjective Remarks Follow up for L5-S1 disc herniation s/p laminectomy. Patient is doing well. He still has persistent pain. No fever, chills. Objective Vitals Vital Signs Date Time Temp Pulse Resp B/P (MAP) Pulse Ox O2 Delivery O2 Flow Rate FiO2 05/27/17 13:16 20 05/27/17 13:13 20 05/27/17 11:29 97.7 108 20 147/87 (107) 94 05/27/17 09:53 20 05/27/17 08:30 98.5 86 20 128/73 (91) 94 05/27/17 06:00 14 05/27/17 05:30 14 05/27/17 05:08 98.3 90 18 128/69 (88) 97 05/27/17 01:07 98.4 95 18 136/75 (95) 96 05/27/17 01:04 14 05/26/17 21:58 14 05/26/17 20:37 98.3 82 18 130/73 (92) 97 05/26/17 20:36 14 05/26/17 17:04 98.1 73 20 138/76 (96) 94 05/26/17 16:54 20 05/26/17 16:24 20 I/O 05/26/17 05/26/17 05/26/17 05/27/17 05/27/17 05/27/17 07:00 15:00 23:00 07:00 15:00 23:00 Intake Total 1000 ml 50 ml 720 ml Output Total 900 ml 1525 ml 1300 ml Balance 100 ml 50 ml -805 ml -1300 ml Intake Oral 1000 ml 720 ml IV Total 50 ml Output Urine Total 900 ml 1525 ml 1300 ml Result Diagram: 05/26/17 0606 05/26/17 0606 Imaging Last Impressions Lumbar Spine X-Ray 05/25/17 0000 Signed Impressions: Service Date/Time: Thursday, May 25, 2017 09:55 - CONCLUSION: Status post L5-S1 fusion Richardson Ruelas MD Objective Remarks GENERAL: AOx3, NAD. SKIN: Warm and dry. HEAD: Normocephalic. EYES: No scleral icterus. No injection or drainage. NECK: Supple, trachea midline. No JVD or lymphadenopathy. CARDIOVASCULAR: Regular rate and rhythm without murmurs, gallops, or rubs. RESPIRATORY: Breath sounds equal bilaterally. No accessory muscle use. GASTROINTESTINAL: Abdomen soft, non-tender, nondistended. MUSCULOSKELETAL: No cyanosis, or edema. BACK: Nontender without obvious deformity. No CVA tenderness. Procedures 05/27/2017 L5-S1 REDO bilateral laminectomy, interbody arthrodhesis using PEEK cage and autologous bone graft, L5-S1 instrumental fixation using transpedicular screws and rods, L5-S1 posterolateral fusion using autologous bone graft and demineralized bone matrix. Microsurgical dissection A/P Problem List: (1) Herniation of intervertebral disc between L5 and S1 ICD Code: M51.27 - Other intervertebral disc displacement, lumbosacral region (2) Status post laminectomy ICD Code: Z98.890 - Other specified postprocedural states Status: Acute Assessment and Plan Mr. Dahl is a pleasant 31-year-old male with a history of L5-S1 disc herniation, surgeries who underwent a third surgery at L5-S1 on 2016. Hospitalist service was consulted by neurosurgery for medical management. - L5-S1 disc herniation - s/p Laminectomy - Continue pain management with Dilaudid LIAISON ENGINEER pump, Toradol IV, Soma. - After 24 hours of LIAISON ENGINEER pump, consider switching to oral pain medications such as acetaminophen, Percocet or [place], breakthrough pain medication. - Continue gabapentin 600 mg by mouth 3 times a day. - Continue bowel regimen - Insomnia - Will start Restoril. - Tachycardia - HR 86-108. Full code. SCDs. Alanna Chavez DO May 27, 2017 2:50 pm
[2017-05-27 16:04] VITALS: BP 134/91; PULSE 94; RESP 20; TEMP 98.6; O2SAT 96
[2017-05-27 20:16] VITALS: BP 136/78; PULSE 97; RESP 18; TEMP 99.1; O2SAT 98
[2017-05-27] MEDS: TEMAZEPAM 15 MG CAP PO PRN (21:19)
[2017-05-28] MEDS: HYDROmorphone HCL PCA 6 MG/30 ML IV SCH ×2 (00:27→09:24)
[2017-05-28 00:34] VITALS: BP 152/84; PULSE 105; RESP 18; TEMP 99.9; O2SAT 96
[2017-05-28] MEDS: HYDROmorphone HCL PF 2 MG/ML VIAL IV PRN ×6 (01:37→22:15)
[2017-05-28 04:54] VITALS: BP 147/77; PULSE 111; RESP 18; TEMP 98.6; O2SAT 95
[2017-05-28] MEDS: PCA - TOTAL MG DILAUDID DELIVERED PER SHIFT SCH (06:00)
[2017-05-28 08:00] VITALS: BP 131/74; PULSE 120; RESP 18; TEMP 98.2; O2SAT 95
[2017-05-28] MEDS: INSULIN ASPART SUPPLEMENTAL SCALE SQ SCH ×2 (08:00→21:00)
--- NOTE | 2017-05-28 09:04 | HHI.PR ---
Subjective Remarks patient awake and alert, appears comfortable but states low back pain with minimal movement no incontinence no chest pains or shortness of breath per aptient sees a lead painter- Dr. Woodruff Objective Vitals Vital Signs Date Time Temp Pulse Resp B/P (MAP) Pulse Ox O2 Delivery O2 Flow Rate FiO2 05/28/17 08:00 98.2 120 18 131/74 (93) 95 05/28/17 04:54 98.6 111 18 147/77 (100) 95 05/28/17 00:34 99.9 105 18 152/84 (106) 96 05/28/17 00:27 18 05/27/17 22:00 18 05/27/17 20:16 99.1 97 18 136/78 (97) 98 05/27/17 18:28 20 05/27/17 16:04 98.6 94 20 134/91 (105) 96 05/27/17 13:16 20 05/27/17 13:13 20 05/27/17 11:29 97.7 108 20 147/87 (107) 94 05/27/17 09:53 20 I/O 05/27/17 05/27/17 05/27/17 05/28/17 05/28/17 05/28/17 07:00 15:00 23:00 07:00 15:00 23:00 Intake Total 960 ml Output Total 1300 ml 500 ml Balance -1300 ml 960 ml -500 ml Intake Oral 960 ml Output Urine Total 1300 ml 500 ml Result Diagram: 05/26/17 0606 05/26/17 0606 Imaging Last Impressions Lumbar Spine X-Ray 05/25/17 0000 Signed Impressions: Service Date/Time: Thursday, May 25, 2017 09:55 - CONCLUSION: Status post L5-S1 fusion Richardson Ruelas MD Objective Remarks awake and alert, oriented x 3 anicteric lungs clear regular rhythm abdomen soft, nontender extremities no edema, no calf tenderness Procedures 05/27/2017 L5-S1 REDO bilateral laminectomy, interbody arthrodhesis using PEEK cage and autologous bone graft, L5-S1 instrumental fixation using transpedicular screws and rods, L5-S1 posterolateral fusion using autologous bone graft and demineralized bone matrix. Microsurgical dissection A/P Problem List: (1) Herniation of intervertebral disc between L5 and S1 ICD Code: M51.27 - Other intervertebral disc displacement, lumbosacral region (2) Status post laminectomy ICD Code: Z98.890 - Other specified postprocedural states Status: Acute Assessment and Plan Mr. Dahl is a pleasant 31-year-old male with a history of L5-S1 disc herniation, surgeries who underwent a third surgery at L5-S1 on 2016. Hospitalist service was consulted by neurosurgery for medical management. - L5-S1 disc herniation S/p Laminectomy History of chor ic pain- ff by [facility]- Dr. Woodruff - as OP on Oxycodone 80 mg per day - Continue pain management with Dilaudid DENTAL HYGIENE INSTRUCTOR pump, Toradol IV, Soma.- pain management per primary service - Continue gabapentin 600 mg by mouth 3 times a day. - colace 100 mg bid for bowel regimen. As OP- per patient uses [facility] occasionally PT per NS - Insomnia - Restoril. LOvenox + PPI for prophylaxis Full code. SCDs. Caron Holcomb MD May 28, 2017 09:04
[2017-05-28] MEDS: DOCUSATE SODIUM 100 MG CAP PO SCH ×2 (09:16→22:00)
[2017-05-28] MEDS: PANTOPRAZOLE SOD 40 MG DELAYED RELEASE TAB PO SCH (09:16)
[2017-05-28] MEDS: GABAPENTIN 300 MG CAP PO SCH ×3 (09:16→18:00)
[2017-05-28] MEDS: ENOXAPARIN SODIUM 40 MG/0.4 ML SYRINGE SQ SCH (10:56)
[2017-05-28 12:00] VITALS: BP 128/83; PULSE 87; RESP 17; TEMP 98.2; O2SAT 97
--- NOTE | 2017-05-28 15:56 | HHI.NSPN ---
s/p lumbar laminectomy History Interval History Still having pain when up. On Dilaudid human resources compensation analyst and prn dilaudid Reports doing well System Review Comments no change Exam Results Vital Signs Date Time Temp Pulse Resp B/P (MAP) Pulse Ox O2 Delivery O2 Flow Rate FiO2 05/28/17 12:00 98.2 87 17 128/83 (98) 97 05/25/17 17:45 Nasal Cannula 3 Intake and Output 05/28/17 05/28/17 05/29/17 08:00 16:00 00:00 Output Total 500 ml Balance -500 ml Physical Examination Alert and awake follows commands Wound is clean Moves LEs well Medical Decision Making Impression and Plan Progressing Discussed use of IV meds P: D/C TUFTING MACHINE OPERATOR Start oxycodone 10 mg every 6 hours Total Minutes: 15 Dewayne Seymour MD May 28, 2017 15:56
[2017-05-28 16:00] VITALS: BP 137/76; PULSE 110; RESP 17; TEMP 98.7; O2SAT 95
[2017-05-28 20:00] VITALS: BP 145/79; PULSE 101; RESP 20; TEMP 99.4; O2SAT 97
[2017-05-28] MEDS: TEMAZEPAM 15 MG CAP PO PRN (22:15)
[2017-05-29] VITALS: BP 157/76; PULSE 102; RESP 18; TEMP 98.5; O2SAT 97
[2017-05-29] MEDS: HYDROmorphone HCL PF 2 MG/ML VIAL IV PRN ×8 (01:16→23:21)
[2017-05-29 04:00] VITALS: BP 127/65; PULSE 83; RESP 18; TEMP 98.2; O2SAT 96
[2017-05-29 08:00] VITALS: BP 152/81; PULSE 120; RESP 19; TEMP 98.7; O2SAT 98
[2017-05-29] MEDS: INSULIN ASPART SUPPLEMENTAL SCALE SQ SCH ×2 (08:00→19:56)
[2017-05-29] MEDS: DOCUSATE SODIUM 100 MG CAP PO SCH ×2 (08:54→21:20)
[2017-05-29] MEDS: GABAPENTIN 300 MG CAP PO SCH ×3 (08:54→17:41)
[2017-05-29] MEDS: PANTOPRAZOLE SOD 40 MG DELAYED RELEASE TAB PO SCH (08:54)
--- NOTE | 2017-05-29 10:33 | HHI.PR ---
Subjective Remarks patient able to sit at the edge of the bed but pain with hip/knee flexion and extension Objective Vitals Vital Signs Date Time Temp Pulse Resp B/P (MAP) Pulse Ox O2 Delivery O2 Flow Rate FiO2 05/29/17 08:00 98.7 120 19 152/81 (104) 98 05/29/17 04:00 98.2 83 18 127/65 (85) 96 05/29/17 00:00 98.5 102 18 157/76 (103) 97 05/28/17 20:00 99.4 101 20 145/79 (101) 97 05/28/17 16:00 98.7 110 17 137/76 (96) 95 05/28/17 12:00 98.2 87 17 128/83 (98) 97 I/O 05/28/17 05/28/17 05/28/17 05/29/17 05/29/17 05/29/17 06:59 14:59 22:59 06:59 14:59 22:59 Intake Total 480 ml Output Total 500 ml 750 ml Balance -500 ml 480 ml -750 ml Intake Oral 480 ml Output Urine Total 500 ml 750 ml # Voids 3 # Bowel Movements 0 Result Diagram: 05/26/17 0606 05/26/17 0606 Imaging Last Impressions Lumbar Spine X-Ray 05/25/17 0000 Signed Impressions: Service Date/Time: Thursday, May 25, 2017 09:55 - CONCLUSION: Status post L5-S1 fusion Richardson Ruelas MD Objective Remarks awake and alert, oriented x 3 anicteric lungs clear regular rhythm abdomen soft, nontender Back- incisions dry, stitiches in place, + erythema of skin of the back- lumbar to the flank area bilateral extremities no edema, no calf tenderness limitation in range of motion- hip flexion Procedures 05/27/2017 L5-S1 REDO bilateral laminectomy, interbody arthrodhesis using PEEK cage and autologous bone graft, L5-S1 instrumental fixation using transpedicular screws and rods, L5-S1 posterolateral fusion using autologous bone graft and demineralized bone matrix. Microsurgical dissection A/P Problem List: (1) Herniation of intervertebral disc between L5 and S1 ICD Code: M51.27 - Other intervertebral disc displacement, lumbosacral region (2) Status post laminectomy ICD Code: Z98.890 - Other specified postprocedural states Status: Acute Assessment and Plan Mr. Dahl is a pleasant 31-year-old male with a history of L5-S1 disc herniation, surgeries who underwent a third surgery at L5-S1 on 2016. Hospitalist service was consulted by neurosurgery for medical management. - L5-S1 disc herniation S/p Laminectomy History of chronic pain- ff by [facility]- Dr. Woodruff - as OP on Oxycodone 80 mg per day - pain meds per Neurosurgery- started on po Oxycodone 10 mg po q6 - Continue gabapentin 600 mg by mouth 3 times a day. - colace 100 mg bid for bowel regimen. As OP- per patient uses [facility] occasionally PT per NS ? early Bilateral lower back cellulitis- Incision itself looks good check CBC. start po Keflex and monitor - Insomnia - Restoril. LOvenox + PPI for prophylaxis Full code. SCDs. Caron Holcomb MD May 29, 2017 10:33
[2017-05-29 12:00] VITALS: BP 138/88; PULSE 107; RESP 17; TEMP 98.6; O2SAT 98
--- NOTE | 2017-05-29 13:11 | HHI.NSPN ---
History Chief Complaint: increased discomfort Interval History Patient noticed increase in discomfort after switch of meds Also complaining of redness System Review Comments no change Exam Results Vital Signs Date Time Temp Pulse Resp B/P (MAP) Pulse Ox O2 Delivery O2 Flow Rate FiO2 05/29/17 12:00 98.6 107 17 138/88 (105) 98 05/25/17 17:45 Nasal Cannula 3 Intake and Output 05/29/17 05/29/17 05/30/17 08:00 16:00 00:00 Output Total 750 ml Balance -750 ml Physical Examination Alert and awake follows commands Wound is clean Redness is related to small hematoma in the incision. There is no erythema or drainage Moves LEs well Afebrile Medical Decision Making Impression and Plan Patient concerned about redness but this is compatible with bleeding within the tissues and not infection Detailed explanation to patient and nurse P: increase oxycodone to 15 mg and add flexeril Total Minutes: 20 Dewayne Seymour MD May 29, 2017 13:11
[2017-05-29 13:31] LABS: AUTOMATED NEUTROPHIL # 6.3 TH/MM3 (1.8-7.7); BASOPHIL % 0.4 % (0.0-2.0); EOSINOPHIL # 0.2 TH/MM3 (0-0.4); EOSINOPHIL % 2.9 % (0.0-4.0); HEMATOCRIT 37.2 % (39.0-51.0); HEMO FLAGS DIFF FINAL; LYMPH % 10.7 % (9.0-44.0); LYMPHOCYTE # 0.9 TH/MM3 (1.0-4.8); MEAN CELL VOLUME 84.3 FL (80.0-100.0); MEAN CORPUSCULAR HEMOGLOBIN 29.8 PG (27.0-34.0); MEAN CORPUSCULAR HGB CONC 35.4 % (32.0-36.0); MONO % 12.1 % (0.0-8.0); NEUT % 73.9 % (16.0-70.0); PLATELET COUNT 177 TH/MM3 (150-450); RED BLOOD COUNT 4.41 MIL/MM3 (4.50-5.90); RED CELL DISTRIBUTION WIDTH 12.4 % (11.6-17.2); WHITE BLOOD COUNT 8.4 TH/MM3 (4.0-11.0)
[2017-05-29] MEDS: CEPHALEXIN MONOHYDRATE 500 MG CAP PO SCH ×2 (14:54→21:19)
[2017-05-29] MEDS: CYCLOBENZAPRINE HCL 10 MG TAB PO SCH ×2 (14:54→21:19)
[2017-05-29] MEDS: ENOXAPARIN SODIUM 40 MG/0.4 ML SYRINGE SQ SCH (15:01)
[2017-05-29 19:59] VITALS: BP 128/74; PULSE 99; RESP 20; TEMP 98.3; O2SAT 98
[2017-05-29] MEDS: TEMAZEPAM 15 MG CAP PO PRN (21:24)
[2017-05-30] VITALS: BP 141/68; PULSE 96; RESP 18; TEMP 98.2; O2SAT 96
[2017-05-30] MEDS: HYDROmorphone HCL PF 2 MG/ML VIAL IV PRN ×4 (02:29→12:14)
[2017-05-30 05:46] VITALS: BP 131/72; PULSE 81; RESP 19; TEMP 97.8; O2SAT 97
[2017-05-30] MEDS: CYCLOBENZAPRINE HCL 10 MG TAB PO SCH (05:48)
[2017-05-30] MEDS: CEPHALEXIN MONOHYDRATE 500 MG CAP PO SCH (05:48)
[2017-05-30] MEDS: INSULIN ASPART SUPPLEMENTAL SCALE SQ SCH ×2 (07:59→12:00)
[2017-05-30 08:00] VITALS: BP 123/67; PULSE 95; RESP 18; TEMP 97.6; O2SAT 97
[2017-05-30] MEDS: DOCUSATE SODIUM 100 MG CAP PO SCH (08:33)
[2017-05-30] MEDS: PANTOPRAZOLE SOD 40 MG DELAYED RELEASE TAB PO SCH (08:33)
[2017-05-30] MEDS: GABAPENTIN 300 MG CAP PO SCH (08:33)
[2017-05-30] MEDS ORDERED: GABA600T PO (09:32)
[2017-05-30] MEDS ORDERED: OXYC-395 PO (09:32)
[2017-05-30] MEDS ORDERED: CYCL10TA PO (09:32)
--- NOTE | 2017-05-30 10:15 | HHI.DCPOC ---
Discharge Care Plan Diagnosis: (1) S/P lumbar spinal fusion Goals to Promote Your Health * To prevent worsening of your condition and complications * To maintain your health at the optimal level Directions to Meet Your Goals Take your medications as prescribed Follow your dietary instruction Follow activity as directed Keep your appointments as scheduled Take your immunizations and boosters as scheduled If your symptoms worsen call your PCP, if no PCP go to Urgent Care Center or Emergency Room Smoking is Dangerous to Your Health. Avoid second hand smoke Call the 24-hour hour crisis hotline for domestic abuse at Noelle Hare May 30, 2017 10:15
--- NOTE | 2017-05-30 10:16 | HHI.DS ---
Discharge Summary Admission Date May 25, 2017 at 06:33 Discharge Date: May 30, 2017 Admitting Diagnosis (1) Herniation of intervertebral disc between L5 and S1 ICD Code: M51.27 - Other intervertebral disc displacement, lumbosacral region (2) Status post laminectomy ICD Code: Z98.890 - Other specified postprocedural states Status: Acute CBC/BMP: 05/29/17 1302 05/26/17 0606 Significant Findings Laboratory Tests Test 05/28/17 08:05 05/29/17 13:02 Red Blood Count 4.41 MIL/MM3 (4.50-5.90) Hematocrit 37.2 % (39.0-51.0) Neutrophils (%) (Auto) 73.9 % (16.0-70.0) Monocytes (%) (Auto) 12.1 % (0.0-8.0) Lymphocytes # (Auto) 0.9 TH/MM3 (1.0-4.8) Monocytes # (Auto) 1.0 TH/MM3 (0-0.9) Pt Condition on Discharge: Stable Discharge Disposition: Discharge Home Discharge Instructions DIET: Follow Instructions for: As Tolerated, No Restrictions, Heart Healthy Diet ADDITIONAL Activity Instructio: Avoid strenuous activities, heavy lifting over 5 lbs, overhead activities, repetitive bending, twisting, pushing, pulling or any activities which might result in stress over the spine. Avoid situation that will put at risk for falls. Use assistive device as needed for walking. Wear lumbar brace when out of bed. Noelle Hare May 30, 2017 10:15
[2017-05-30] MEDS: ENOXAPARIN SODIUM 40 MG/0.4 ML SYRINGE SQ SCH (10:26)
--- NOTE | 2017-05-30 11:09 | HHI.PR ---
Subjective Remarks no complains no fever no back discomfort Objective Vitals Vital Signs Date Time Temp Pulse Resp B/P (MAP) Pulse Ox O2 Delivery O2 Flow Rate FiO2 05/30/17 08:00 97.6 95 18 123/67 (85) 97 05/30/17 05:46 97.8 81 19 131/72 (91) 97 05/30/17 00:00 98.2 96 18 141/68 (92) 96 05/29/17 19:59 98.3 99 20 128/74 (92) 98 05/29/17 12:00 98.6 107 17 138/88 (105) 98 I/O 05/29/17 05/29/17 05/29/17 05/30/17 05/30/17 05/30/17 07:00 15:00 23:00 07:00 15:00 23:00 Output Total 750 ml 1400 ml Balance -750 ml -1400 ml Output Urine Total 750 ml 1400 ml # Voids 2 Result Diagram: 05/29/17 1302 05/26/17 0606 Imaging Last Impressions Lumbar Spine X-Ray 05/25/17 0000 Signed Impressions: Service Date/Time: Thursday, May 25, 2017 09:55 - CONCLUSION: Status post L5-S1 fusion Richardson Ruelas MD Objective Remarks awake and alert, oriented x 3 anicteric lungs clear regular rhythm abdomen soft, nontender Back- incisions dry, stitiches in place, erythema resolved extremities no edema, no calf tenderness limitation in range of motion- hip flexion Procedures 05/27/2017 L5-S1 REDO bilateral laminectomy, interbody arthrodhesis using PEEK cage and autologous bone graft, L5-S1 instrumental fixation using transpedicular screws and rods, L5-S1 posterolateral fusion using autologous bone graft and demineralized bone matrix. Microsurgical dissection A/P Problem List: (1) Herniation of intervertebral disc between L5 and S1 ICD Code: M51.27 - Other intervertebral disc displacement, lumbosacral region (2) Status post laminectomy ICD Code: Z98.890 - Other specified postprocedural states Status: Acute Assessment and Plan Mr. Dahl is a pleasant 31-year-old male with a history of L5-S1 disc herniation, surgeries who underwent a third surgery at L5-S1 on 2016. Hospitalist service was consulted by neurosurgery for medical management. - L5-S1 disc herniation S/p Laminectomy History of chronic pain- ff by [facility]- Dr. Woodruff - as OP on Oxycodone 80 mg per day - pain meds per Neurosurgery- started on po Oxycodone 10 mg po q6 - Continue gabapentin 600 mg by mouth 3 times a day. - colace 100 mg bid for bowel regimen. As OP- per patient uses [facility] occasionally PT per NS ? early Bilateral lower back cellulitis- Exam this am- erythema resolved Incision itself looks good no leukocyttosis reviewed neurosurgeon notes- no infection will DC keflex - Insomnia - Restoril. LOvenox + PPI for prophylaxis Full code. SCDs. DC home today OP ff up with PCP advised and with neurosurgery Caron Holcomb MD May 30, 2017 11:09
[2017-05-30 12:00] VITALS: BP 122/72; PULSE 106; RESP 18; TEMP 97.6; O2SAT 98
== END 2017-05-30 12:29 | disposition home or self-care (01) | DRG 460 ==
LOC: HSDI 06:33 → N05B 18:38
PROVIDERS: ADMIT Neurological Surgery; ATTEND Neurological Surgery
PROC: 0SB40ZZ Excision of Lumbosacral Disc, Open Approach (ICD-10-PCS; 2017-05-25)
PROC: 00QT0ZZ Repair Spinal Meninges, Open Approach (ICD-10-PCS; 2017-05-25)
PROC: 0SG30AJ Fusion of Lumbosacral Joint with Interbody Fusion Device, Posterior Approach, Anterior Column, Open Approach (ICD-10-PCS; principal; 2017-05-25 08:33)
DX: M51.17 Intervertebral disc disorders with radiculopathy, lumbosacral region (principal); G96.11 Dural tear; I95.9 Hypotension, unspecified; L76.32 Postprocedural hematoma of skin and subcutaneous tissue following other procedure; M51.26 Other intervertebral disc displacement, lumbar region; G89.18 Other acute postprocedural pain; G89.29 Other chronic pain; R00.0 Tachycardia, unspecified; G47.00 Insomnia, unspecified; Z87.891 Personal history of nicotine dependence; Y83.8 Other surgical procedures as the cause of abnormal reaction of the patient, or of later complication, without mention of misadventure at the time of the procedure
CPT/HCPCS: 36415; 72100; 76000; 80048; 80053; 81001; 82948; 83605; 85025; 86850; 86900; 86901; 87640; 87641; 94150; C1713; J0131; J0690; J1100; J1170; J1200; J1580; J1650; J1885; J2175; J2250; J2270; J2370; J2405; J3010; J3370; J7030; J7040; J7050; J7120; L0484

== ENCOUNTER 2017-08-20 18:49 | Emergency (ER) | payer BC ==
[~2017-08-20 18:49] MED LIST changes: +CYCL10TA PO; +GABA600T PO; +MSIR30 PO
[2017-08-20 18:52] VITALS: BP 139/87; PULSE 119; RESP 16; TEMP 98.3; O2SAT 98
[2017-08-20] MEDS ORDERED: DOXE25CA2 PO (18:58)
[2017-08-20] MEDS ORDERED: LISI2.5T3 PO (18:58)
[2017-08-20 19:15] VITALS: BP 129/81; PULSE 108; RESP 18; O2SAT 99
[2017-08-20] MEDS ORDERED: SODIUM CHLORIDE 0.9% FLUSH 10 ML FLUSH IVF PRN (19:30)
[2017-08-20] MEDS ORDERED: SODIUM CHLOR 0.9% 1000 ML INJ 1,000 ML IV ONE (19:30)
[2017-08-20] MEDS ORDERED: ASPIRIN 81 MG CHEW TAB PO ONE (19:30)
[2017-08-20 19:47] LABS: AUTOMATED NEUTROPHIL # 6.6 TH/MM3 (1.8-7.7); BASOPHIL # 0.1 TH/MM3 (0-0.2); BASOPHIL % 0.9 % (0.0-2.0); EOSINOPHIL # 0.1 TH/MM3 (0-0.4); EOSINOPHIL % 1.2 % (0.0-4.0); HEMATOCRIT 42.1 % (39.0-51.0); HEMOGLOBIN 14.5 GM/DL (13.0-17.0); LYMPHOCYTE # 2.5 TH/MM3 (1.0-4.8); MEAN CELL VOLUME 83.3 FL (80.0-100.0); MEAN CORPUSCULAR HEMOGLOBIN 28.6 PG (27.0-34.0); MEAN CORPUSCULAR HGB CONC 34.4 % (32.0-36.0); MONOCYTE # 0.5 TH/MM3 (0-0.9); NEUT % 66.9 % (16.0-70.0); PLATELET COUNT 220 TH/MM3 (150-450); RED BLOOD COUNT 5.06 MIL/MM3 (4.50-5.90); RED CELL DISTRIBUTION WIDTH 12.2 % (11.6-17.2); WHITE BLOOD COUNT 9.8 TH/MM3 (4.0-11.0)
[2017-08-20 19:57] LABS: CHLORIDE 108 MEQ/L (98-107); SODIUM (NA) 142 MEQ/L (136-145)
[2017-08-20 19:59] LABS: CALCIUM 8.7 MG/DL (8.5-10.1)
[2017-08-20 20:00] LABS: BICARBONATE 27.4 MEQ/L (21.0-32.0); BLOOD UREA NITROGEN 12 MG/DL (7-18); GLUCOSE,RANDOM 128 MG/DL (74-106)
[2017-08-20] MEDS ORDERED: LORazepam 2 MG/ML VIAL IV PUSH ONE (20:00)
--- NOTE | 2017-08-20 20:00 | RADRPT ---
EXAM DATE/TIME: 08/20/2017 19:36 [facility] COMPARISON: CHEST PA & LAT, May 31, 2016, 11:45. INDICATIONS : Chest pain and shortness of breath. MEDICAL HISTORY : Hypertension. Herniated disk. SURGICAL HISTORY : Spinal fusion. ENCOUNTER: Initial ACUITY: 2 weeks PAIN SCORE: 8/10 LOCATION: Bilateral chest FINDINGS: PA and lateral views of the chest demonstrate the lungs to be symmetrically aerated without evidence of mass, infiltrate or effusion. The cardiomediastinal contours are unremarkable. Osseous structure s are intact. CONCLUSION: No acute disease. No significant change has occurred. James Heart MD on August 20, 2017 at 19:54 Board Certified Radiologist. This report was verified electronically.
[2017-08-20 20:03] LABS: CREATININE 0.95 MG/DL (0.60-1.30); GLOMERULAR FILTRATION RATE 91 ML/MIN (>89); INTERNATIONAL NORMALIZED RATIO 1.1 RATIO; PROTHROMBIN TIME - PATIENT 11.4 SEC (9.8-11.6)
[2017-08-20 20:04] VITALS: BP 134/81; PULSE 96; RESP 18; O2SAT 99
[2017-08-20 20:08] LABS: TROPONIN I LESS THAN 0.02 NG/ML (0.02-0.05)
[2017-08-20] MEDS ORDERED: IOHEXOL 350 MG/ML 10 ML VIAL (for RAD DIAG) IVCONTRAST ONE (20:22)
--- NOTE | 2017-08-20 20:23 | PD ---
HPI Chief Complaint: Chest Pain Time Seen by Provider: 19:26 Travel History International Travel<30 days: No Contact w/Intl Traveler<30days: No Traveled to known affect area: No History of Present Illness HPI 32-year-old male presents to the emergency department complaining of 2 weeks of intermittent chest pain and shortness of breath. Patient states he just feels like he cannot get a good breath. Patient denies any painful respiration. Patient does report that 2-1/2 months ago he underwent surgery on his lumbar spine for laminectomy and discectomy. Patient denies any lower extremity pain or swelling. Patient has some persistent postoperative right lower extremity numbness that his neurosurgeon is aware of and has not changed. Patient denies any neck jaw shoulder arm mid scapular back pain or abdominal pain. Patient had no fever or chills. Patient denies any prior history of clotting disorder. Patient was seen by his primary care provider yesterday and EKG was performed and he was told that his EKG was abnormal with a conduction disturbance. Patient was told by his primary to come to the hospital and evaluated for had ongoing symptoms. Patient is not aware of having a previous abnormal EKG. Patient denies personal history of dyslipidemia diabetes or family history of premature onset heart disease. Patient states yesterday he was started on antihypertensive medication and states he stopped smoking cigarettes 2 months ago but has had 1 or 2 cigarettes in the past few days. Patient also reports that he has been at bedrest and decreased activity fairly sedentary due to this being his third low back surgery. Patient denies other concerns or complaints. Patient denies any recent long distance travel. Patient rates his pain at this time 0/10 in intensity. PFSH Past Medical History Narrative Medical Lumbar disc disease, lumbar surgery, insomnia; nursing notes reviewed Hx Anticoagulant Therapy: No Cancer: No Cardiovascular Problems: No Diabetes: No Diminished Hearing: No Endocrine: No Gastrointestinal Disorders: No Genitourinary: No Hepatitis: No Hiatal Hernia: No Hypertension: Yes Immune Disorder: No Musculoskeletal: No Neurologic: Yes (HERNIATED DISK) Psychiatric: No Reproductive: No Respiratory: No Immunizations Current: Yes Thyroid Disease: No Influenza Vaccination: No Past Surgical History Abdominal Surgery: No AICD: No Body Medical Devices: none Cardiac Surgery: No Ear Surgery: No Endocrine Surgery: No Eye Surgery: No Genitourinary Surgery: No Gynecologic Surgery: No Joint Replacement: No Neurologic Surgery: Yes (MAY 2017: SPINAL FUSION L5-S1) Oral Surgery: No Pacemaker: No Thoracic Surgery: No Other Surgery: Yes Social History Alcohol Use: No (QUIT 2013) Tobacco Use: Yes (1/4 PACK PER WEEK) Substance Use: No Allergies-Medications (Allergen,Severity, Reaction): Coded Allergies: tramadol (Unverified Allergy, Severe, HEADACHES, 08/20/17) Reported Meds & Prescriptions Reported Meds & Active Scripts Active Gabapentin 600 Mg Tab 600 Mg PO TID Reported Doxepin (Doxepin HCl) 25 Mg Cap 10 Mg PO HS Lisinopril 2.5 Mg Tab 2.5 Mg PO DAILY Review of Systems Except as stated in HPI: all other systems reviewed are Neg Physical Exam Narrative GENERAL: Well-developed well-nourished male no acute distress no respiratory distress SKIN: Warm and dry. HEAD: Normocephalic. EYES: No scleral icterus. No injection or drainage. NECK: Supple, trachea midline. No JVD or lymphadenopathy. CARDIOVASCULAR: Regular rate and rhythm without murmurs, gallops, or rubs. Radial and dorsalis pedis pulses 2+ to palpation. RESPIRATORY: Breath sounds equal bilaterally. No accessory muscle use. GASTROINTESTINAL: Abdomen soft, non-tender, nondistended. MUSCULOSKELETAL: No cyanosis, or edema. BACK: Nontender without obvious deformity. No CVA tenderness. Data Data Last Documented VS Vital Signs Date Time Temp Pulse Resp B/P (MAP) Pulse Ox O2 Delivery O2 Flow Rate FiO2 08/20/17 22:06 92 18 130/78 (95) 99 08/20/17 20:04 Room Air 08/20/17 18:52 98.3 Orders Orders Electrocardiogram (08/20/17 19:) Basic Metabolic Panel (Bmp) (08/20/17 19:) Ckmb (Isoenzyme) Profile (08/20/17:) Complete Blood Count With Diff (08/20/17:) Magnesium (Mg) (08/20/17:) Prothrombin Time / Inr (Pt) (08/20/17:) Act Partial Throm Time (Ptt) (08/20/17:) Troponin I (08/20/17:) Ecg Monitoring (08/20/17:) Bilateral Bp Monitoring (08/20/17:) Iv Access Insert/Monitor (08/20/17 19:) Oximetry (08/20/17:) Oxygen Administration (08/20/17:) Aspirin Chew (Aspirin Chew) (08/20/17 19:30) Sodium Chloride 0.9% Flush (Ns Flush) (08/20/17 19:30) Ct Pulmonary Angiogram (08/20/17:) Chest, Pa & Lat (08/20/17:) Sodium Chlor 0.9% 1000 Ml Inj (Ns 1000 M (08/20/17 19:30) Lorazepam Inj (Ativan Inj) (08/20/17 20:00) CKMB (08/20/17 19:05) CKMB% (08/20/17 19:) Iohexol 350 Inj (Omnipaque 350 Inj) (08/20/17 20:22) Ed Discharge Order (08/20/17 21:57) Labs Laboratory Tests Test 08/20/17 19: White Blood Count 9.8 TH/MM3 Red Blood Count 5.06 MIL/MM3 Hemoglobin 14.5 GM/DL Hematocrit 42.1 % Mean Corpuscular Volume 83.3 FL Mean Corpuscular Hemoglobin 28.6 PG Mean Corpuscular Hemoglobin Concent 34.4 % Red Cell Distribution Width 12.2 % Platelet Count 220 TH/MM3 Mean Platelet Volume 9.0 FL Neutrophils (%) (Auto) 66.9 % Lymphocytes (%) (Auto) 26.0 % Monocytes (%) (Auto) 5.0 % Eosinophils (%) (Auto) 1.2 % Basophils (%) (Auto) 0.9 % Neutrophils # (Auto) 6.6 TH/MM3 Lymphocytes # (Auto) 2.5 TH/MM3 Monocytes # (Auto) 0.5 TH/MM3 Eosinophils # (Auto) 0.1 TH/MM3 Basophils # (Auto) 0.1 TH/MM3 CBC Comment DIFF FINAL Differential Comment Prothrombin Time 11.4 SEC Prothromb Time International Ratio 1.1 RATIO Activated Partial Thromboplast Time 29.5 SEC Blood Urea Nitrogen 12 MG/DL Creatinine 0.95 MG/DL Random Glucose 128 MG/DL Calcium Level 8.7 MG/DL Magnesium Level 2.0 MG/DL Sodium Level 142 MEQ/L Potassium Level 3.7 MEQ/L Chloride Level 108 MEQ/L Carbon Dioxide Level 27.4 MEQ/L Anion Gap 7 MEQ/L Estimat Glomerular Filtration Rate 91 ML/MIN Total Creatine Kinase 287 U/L Creatine Kinase MB 3.6 NG/ML Troponin I LESS THAN 0.02 NG/ML MDM Medical Decision Making Medical Screen Exam Complete: Yes Emergency Medical Condition: Yes Medical Record Reviewed: Yes Interpretation(s) EKG: Sinus tachycardia rate 115 left anterior fascicular block this is been noted on his EKG since 05/31/16 Troponin I: Less than 0.02, not elevated; CK: 287, not elevated; MB Last Impressions Chest X-Ray 08/20/171925 Signed Impressions: Service Date/Time: Sunday, August 20, 2017 19:36 - CONCLUSION: No acute disease. No significant change has occurred. James Heart MD CT Angiography 08/20/171925 Signed Impressions: Service Date/Time: Sunday, August 20, 2017 20:14 - CONCLUSION: 1. Negative for pulmonary embolus. No acute findings. James Heart MD CBC & BMP Diagram 08/20/17 19:05 Calcium Level 8.7, Magnesium Level 2.0 Vital Signs Date Time Temp Pulse Resp B/P (MAP) Pulse Ox O2 Delivery O2 Flow Rate FiO2 08/20/17 20:04 96 18 134/81 (98) 99 Room Air 08/20/17 19:16 112 18 100 Aerosol Mask 08/20/17 19:15 108 18 129/81 (97) 99 Room Air 08/20/17 18:52 98.3 119 16 139/87 (104) 98 Differential Diagnosis Chest pain, atypical chest pain, pleurisy, costochondritis, PE, pneumonia, ACS, [place] Narrative Course Patient placed on court recording monitor with continuous pulse oximetry IV access obtained specimens collected and sent for resulting EKG performed which shows sinus tachycardia rate 06/27/2019 disease pattern left anterior fascicular block no acute ST elevation injury pattern; patient given aspirin 162 mg by mouth 1 L normal saline as patient has mild sinus tachycardia and normotensive for hydration status and patient reports anxiety Ativan 0.5 mg IV; CT pulmonary angiogram ordered. Pain or shortness of breath Patient waiting for CT results Patient reports feels comfortable after one-time dose of Ativan and requesting prescription for anti-anxiety medication for outpatient management CT pulmonary angiogram is negative for PE Lab values found to be in normal range EKG shows sinus tachycardia that has resolved left anterior fascicular block that has been noted on his EKG since [address] elevation noted cardiac enzymes are found to be in normal range patient is a 32-year-old male with recent diagnosis of hypertension denies dyslipidemia diabetes any known premature onset cardiac disease no personal history of cardiac disease does admit to occasional tobacco use but denies any recent tobacco use. This point time patient is desirous of being discharged home and follow-up with his primary care provider as had been planned does not want to be admitted at this time although chest pain center protocol observation admission has been offered to the patient and risk-benefit has been discussed in detail. At this time as patient appears to be stable will attempt a trial of outpatient with close follow-up with his primary care provider but is encouraged to return immediately for any concerns or change in condition or recurrence of symptoms. Diagnosis Primary Impression: Chest pain Qualified Codes: R07.9 - Chest pain, unspecified Referrals: Primary Care Physician 2 days Patient Instructions: General Instructions Additional Instructions: Continue current chronic medications as presently prescribed Follow-up with your primary care provider Return to the emergency department for any recurrence of symptoms Increase fluid hydration May use [id number] ibuprofen for discomfort associated with inflammation or for fever 100.4F or greater and/or acetaminophen/Tylenol for fever 100.4F or greater or for minor pain Disposition: 01 DISCHARGE HOME Condition: Stable Selina Urias MD Aug 20, 2017 20:23
--- NOTE | 2017-08-20 20:38 | RADRPT ---
EXAM DATE/TIME: 08/20/2017 20:14 [facility] COMPARISON: No previous studies available for comparison. INDICATIONS : Chest pain x 2 weeks. IV CONTRAST: 75 cc Omnipaque 350 (iohexol) IV RADIATION DOSE: 18.85 CTDIvol (mGy) MEDICAL HISTORY : None SURGICAL HISTORY : Fusion, lumbar. ENCOUNTER: Initial ACUITY: 2 weeks PAIN SCALE: 7/10 LOCATION: Bilateral chest TECHNIQUE: Volumetric scanning of the chest was performed using a pulmonary embolism protocol MIP images were re constructed. Using automated exposure control and adjustment of the mA and/or kV according to patien t size, radiation dose was kept as low as reasonably achievable to obtain optimal diagnostic quality images. DICOM format image data is available electronically for review and comparison. Follow-up recommendations for detected pulmonary nodules are based at a minimum on nodule size and pa tient risk factors according to Fleischner Society Guidelines. FINDINGS: PULMONARY ARTERIES: No filling defects are seen in the pulmonary arteries through the segmental level. LUNGS: There is no consolidation or pneumothorax . No concerning pulmonary nodule is visualized. PLEURAE: There is no pleural thickening or pleural effusion. MEDIASTINUM: There is good visualization of the great vessels of the middle mediastinum. No evidence of mediastin al or hilar adenopathy/mass. MUSCULOSKELETAL: Within normal limits for patient age. MISCELLANEOUS: The visualized upper abdominal organs demonstrate no acute abnormality. CONCLUSION: 1. Negative for pulmonary embolus. No acute findings. James Heart MD on August 20, 2017 at 20:31 Board Certified Radiologist. This report was verified electronically.
--- NOTE | 2017-08-20 21:52 | EKG ---
Date Performed: 08/20/2017 Time Performed: 19:09:13 PTAGE: 32 years EKG: SINUS TACHYCARDIA LOW QRS VOLTAGE IN PRECORDIAL LEADS PATTERN CONSISTENT WITH PULMONARY DIS EASE LEFT ANTERIOR FASCICULAR BLOCK ABNORMAL ECG Compared to prior electrocardiogram, rate has increa sed PREVIOUS TRACING : 05/31/2016 11.03 DOCTOR: Boston Whitaker Interpretating Date/Time 08/20/2017 21:50:38
[2017-08-20 22:06] VITALS: BP 130/78
== END 2017-08-20 22:10 | disposition home or self-care (01) ==
LOC: PHED 18:49
DX: R07.9 Chest pain, unspecified (principal); R06.02 Shortness of breath; R00.0 Tachycardia, unspecified; R94.31 Abnormal electrocardiogram [ECG] [EKG]; I10 Essential (primary) hypertension; Z72.0 Tobacco use; Z87.39 Personal history of other diseases of the musculoskeletal system and connective tissue
CPT/HCPCS: 71046; 71275; 80048; 82550; 82552; 83735; 84484; 85025; 85610; 85730; 93005; 96361; 96374; 99285; J2060; J7030; Q9967

== ENCOUNTER 2017-11-06 22:02 | Observation (INO) | payer BC ==
[~2017-11-06 22:02] MED LIST changes: -CYCL10TA PO; -CYCL5TAB PO; +DOXE25CA2 PO; +LISI2.5T3 PO; -MSIR30 PO
--- NOTE | 2017-11-06 22:07 | PD ---
HPI Chief Complaint: Chest Pain Time Seen by Provider: 22:05 Travel History International Travel<30 days: No Contact w/Intl Traveler<30days: No Traveled to known affect area: No History of Present Illness HPI Patient comes in complaining of substernal chest pain, onset since , intermittent, 7-8 out of 10, lasts about 5 minutes, radiates to the neck. Patient denies any alleviating or aggravating factors. Patient denies any associated factors such as fever, rash, cough/runny nose/sore throat, nausea, vomiting, diarrhea, abdominal pain, flank pain, back pain. Patient states that sometime ago he had stress test (one year ago), in which case, he was told that the stress test was abnormal and that he had evidence of a heart attack Primary care physician is Dr. Sergei Sullivan [employer] Cutter is Dr. QUEEN States allergy to tramadol Past medical history significant for herniated disc, spinal fusion of L5 and S1 , hypertension, quarter pack per week cigarette smoker PFSH Past Medical History Hx Anticoagulant Therapy: No Cancer: No Cardiovascular Problems: No Diabetes: No Diminished Hearing: No Endocrine: No Gastrointestinal Disorders: No Genitourinary: No Hepatitis: No Hiatal Hernia: No Hypertension: Yes Immune Disorder: No Musculoskeletal: No Neurologic: Yes (HERNIATED DISK) Psychiatric: No Reproductive: No Respiratory: No Immunizations Current: Yes Thyroid Disease: No Past Surgical History Abdominal Surgery: No AICD: No Body Medical Devices: none Cardiac Surgery: No Ear Surgery: No Endocrine Surgery: No Eye Surgery: No Genitourinary Surgery: No Gynecologic Surgery: No Joint Replacement: No Neurologic Surgery: Yes (MAY 2017: SPINAL FUSION L5-S1) Oral Surgery: No Pacemaker: No Thoracic Surgery: No Other Surgery: Yes Social History Alcohol Use: No (QUIT 2013) Tobacco Use: Yes (1/4 PACK PER WEEK) Substance Use: No Allergies-Medications (Allergen,Severity, Reaction): Coded Allergies: tramadol (Unverified Allergy, Severe, HEADACHES, 08/20/17) Reported Meds & Prescriptions Reported Meds & Active Scripts Active Reported Lisinopril 2.5 Mg Tab 5 Mg PO BID Review of Systems General / Constitutional: No: Fever Eyes: No: Visual changes HENT: No: Headaches Cardiovascular: Positive: Chest Pain or Discomfort Respiratory: No: Shortness of Breath Gastrointestinal: No: Abdominal Pain Genitourinary: No: Dysuria Musculoskeletal: No: Pain Skin: No Rash Neurologic: No: Weakness Psychiatric: No: Depression Endocrine: No: Polydipsia Hematologic/Lymphatic: No: Easy Bruising Physical Exam Narrative GENERAL: SKIN: Warm and dry. HEAD: Atraumatic. Normocephalic. EYES: Pupils equal and round. No scleral icterus. No injection or drainage. ENT: No nasal bleeding or discharge. Mucous membranes pink and moist. NECK: Trachea midline. No JVD. CARDIOVASCULAR: Regular rate and rhythm. RESPIRATORY: No accessory muscle use. Clear to auscultation. Breath sounds equal bilaterally. GASTROINTESTINAL: Abdomen soft, non-tender, nondistended. MUSCULOSKELETAL: Extremities without clubbing, cyanosis, or edema. No obvious deformities. NEUROLOGICAL: Awake and alert. No obvious cranial nerve deficits. Motor grossly within normal limits. Five out of 5 muscle strength in the arms and legs. Normal speech. PSYCHIATRIC: Appropriate mood and affect; insight and judgment normal. Data Data Last Documented VS Vital Signs Date Time Temp Pulse Resp B/P (MAP) Pulse Ox O2 Delivery O2 Flow Rate FiO2 11/06/17 22:37 20 Room Air 11/06/17 22:35 96 138/80 (99) 94 Orders Orders Electrocardiogram (11/06/17 22:13) B-Type Natriuretic Peptide (11/06/17 22:13) Ckmb (Isoenzyme) Profile (11/06/17 22:13) Complete Blood Count With Diff (11/06/17 22:13) Comprehensive Metabolic Panel (11/06/17 22:13) D-Dimer (11/06/17 22:13) Prothrombin Time / Inr (Pt) (11/06/17 22:13) Act Partial Throm Time (Ptt) (11/06/17 22:13) Troponin I (11/06/17 22:13) Lipase (11/06/17 22:13) Chest, Single Ap (11/06/17 22:13) Ecg Monitoring (11/06/17 22:13) Bilateral Bp Monitoring (11/06/17 22:13) Iv Access Insert/Monitor (11/06/17 22:13) Oximetry (11/06/17 22:13) Aspirin Chew (Aspirin Chew) (11/06/17 22:15) Nitroglycerin 2% Oint (Nitroglycerin 2% (11/06/17 22:15) Sodium Chloride 0.9% Flush (Ns Flush) (11/06/17 22:15) CKMB (11/06/17 22:10) CKMB% (11/06/17 22:10) Labs Laboratory Tests Test 11/06/17 22:10 White Blood Count 9.3 TH/MM3 Red Blood Count 5.04 MIL/MM3 Hemoglobin 14.6 GM/DL Hematocrit 42.3 % Mean Corpuscular Volume 83.8 FL Mean Corpuscular Hemoglobin 28.9 PG Mean Corpuscular Hemoglobin Concent 34.5 % Red Cell Distribution Width 12.9 % Platelet Count 247 TH/MM3 Mean Platelet Volume 8.1 FL Neutrophils (%) (Auto) 58.7 % Lymphocytes (%) (Auto) 33.0 % Monocytes (%) (Auto) 6.1 % Eosinophils (%) (Auto) 1.7 % Basophils (%) (Auto) 0.5 % Neutrophils # (Auto) 5.4 TH/MM3 Lymphocytes # (Auto) 3.1 TH/MM3 Monocytes # (Auto) 0.6 TH/MM3 Eosinophils # (Auto) 0.2 TH/MM3 Basophils # (Auto) 0.0 TH/MM3 CBC Comment DIFF FINAL Differential Comment Prothrombin Time 10.5 SEC Prothromb Time International Ratio 1.0 RATIO Activated Partial Thromboplast Time 29.4 SEC D-Dimer Quantitative (PE/DVT) LESS THAN 0.19 MG/L FEU Blood Urea Nitrogen 10 MG/DL Creatinine 1.10 MG/DL Random Glucose 105 MG/DL Total Protein 7.7 GM/DL Albumin 4.1 GM/DL Calcium Level 9.1 MG/DL Alkaline Phosphatase 70 U/L Aspartate Amino Transf (AST/SGOT) 39 U/L Alanine Aminotransferase (ALT/SGPT) 37 U/L Total Bilirubin 0.2 MG/DL Sodium Level 138 MEQ/L Potassium Level 3.2 MEQ/L Chloride Level 104 MEQ/L Carbon Dioxide Level 24.3 MEQ/L Anion Gap 10 MEQ/L Estimat Glomerular Filtration Rate 77 ML/MIN Total Creatine Kinase 1144 U/L Creatine Kinase MB 17.0 NG/ML Creatine Kinase MB % 1.5 % Troponin I LESS THAN 0.02 NG/ML B-Type Natriuretic Peptide LESS THAN 2 PG/ML Lipase 54 U/L MDM Medical Decision Making Medical Screen Exam Complete: Yes Emergency Medical Condition: Yes Medical Record Reviewed: Yes Interpretation(s) EKG shows normal sinus rhythm, 97 bpm, normal intervals, however there is an incomplete right bundle branch block pattern noted. There is mild motion artifact however no evidence of any ST elevation [place] pattern. Nonspecific ST-T wave changes noted Differential Diagnosis Pneumothorax versus pulmonary embolus versus STEMI versus non-STEMI versus pneumonia Narrative Course CBC shows no leukocytosis, no anemia, normal platelet count, no left shift Coagulation profile is within normal limits D-dimer is negative Electrolytes are within normal limits with the exception of mild hypokalemia of 3.2, normal kidney function, normal liver function, normal pancreatic function. Elevated total CPK of 1144, CK-MB of 17, and CK-MB percent 1.5, which are all mildly elevated, troponin however is negative at less than 0.02 Beta natruretic peptide is less than 2 Diagnosis Primary Impression: CP R/O Isaias Armstrong MD November 06, 2017 22:07
[2017-11-06] MEDS ORDERED: SODIUM CHLORIDE 0.9% FLUSH 10 ML FLUSH IVF PRN (22:15)
[2017-11-06] MEDS ORDERED: ASPIRIN 81 MG CHEW TAB PO ONE (22:15)
[2017-11-06] MEDS ORDERED: NITROGLYCERIN 2% OINT 1 GM PACKET TOP ONE (22:15)
[2017-11-06 22:23] LABS: AUTOMATED NEUTROPHIL # 5.4 TH/MM3 (1.8-7.7); BASOPHIL % 0.5 % (0.0-2.0); EOSINOPHIL # 0.2 TH/MM3 (0-0.4); EOSINOPHIL % 1.7 % (0.0-4.0); HEMATOCRIT 42.3 % (39.0-51.0); HEMOGLOBIN 14.6 GM/DL (13.0-17.0); LYMPHOCYTE # 3.1 TH/MM3 (1.0-4.8); MEAN CELL VOLUME 83.8 FL (80.0-100.0); MEAN CORPUSCULAR HEMOGLOBIN 28.9 PG (27.0-34.0); MEAN CORPUSCULAR HGB CONC 34.5 % (32.0-36.0); MEAN PLATELET VOLUME 8.1 FL (7.0-11.0); MONO % 6.1 % (0.0-8.0); MONOCYTE # 0.6 TH/MM3 (0-0.9); NEUT % 58.7 % (16.0-70.0); PLATELET COUNT 247 TH/MM3 (150-450); RED BLOOD COUNT 5.04 MIL/MM3 (4.50-5.90); RED CELL DISTRIBUTION WIDTH 12.9 % (11.6-17.2); WHITE BLOOD COUNT 9.3 TH/MM3 (4.0-11.0)
[2017-11-06 22:26] VITALS: O2SAT 96
[2017-11-06 22:29] VITALS: BP_SYST 138; BP_DIAS 80; BP_DIAS 81; PULSE 96; RESP 20; O2SAT 96
[2017-11-06 22:31] LABS: CHLORIDE 104 MEQ/L (98-107); SODIUM (NA) 138 MEQ/L (136-145)
--- NOTE | 2017-11-06 22:32 | RADRPT ---
EXAM DATE: 11/06/2017 10:27 PM EDT AGE/SEX: 32 years / Male INDICATIONS: Substernal chest pain. CLINICAL DATA: This is the patient's initial encounter. Patient reports that signs and symptoms have been present for 1 day and indicates a pain score of 4/10. MEDICAL/SURGICAL HISTORY: None. None. COMPARISON: No prior [facility] exams available for comparison. FINDINGS: A single AP view of the chest demonstrates the lungs to be symmetrically aerated without evidence of mass, infiltrate or effusion. The cardiomediastinal contours are unremarkable. Osseous structures a re intact. CONCLUSION: Negative examination. Electronically signed by: Richardson Ruelas MD 11/06/2017 10:31 PM EDT
[2017-11-06 22:35] VITALS: BP 138/80; PULSE 96; RESP 20; O2SAT 94
[2017-11-06 22:35] LABS: ALBUMIN 4.1 GM/DL (3.4-5.0); BICARBONATE 24.3 MEQ/L (21.0-32.0); BLOOD UREA NITROGEN 10 MG/DL (7-18); CALCIUM 9.1 MG/DL (8.5-10.1); GLUCOSE,RANDOM 105 MG/DL (74-106)
[2017-11-06 22:38] LABS: ALT (GPT) 37 U/L (12-78); AST (GOT) 39 U/L (15-37); GLOMERULAR FILTRATION RATE 77 ML/MIN (>89)
[2017-11-06 22:39] LABS: TOTAL BILIRUBIN ADULT 0.2 MG/DL (0.2-1.0)
[2017-11-06 22:40] LABS: TOTAL PROTEIN 7.7 GM/DL (6.4-8.2)
[2017-11-06 22:41] LABS: ALKALINE PHOSPHATASE 70 U/L (45-117)
[2017-11-06 22:43] LABS: TROPONIN I LESS THAN 0.02 NG/ML (0.02-0.05)
[2017-11-06 22:50] LABS: PROTHROMBIN TIME - PATIENT 10.5 SEC (9.8-11.6)
[2017-11-06 22:52] LABS: D-DIMER LESS THAN 0.19 MG/L FEU (0.00-0.50)
[2017-11-06 23:48] VITALS: BP 133/78; PULSE 98; RESP 20; O2SAT 96
[2017-11-07 00:08] VITALS: BP 136/70; PULSE 90; RESP 20; O2SAT 97
--- NOTE | 2017-11-07 08:09 | EKG ---
Date Performed: 11/06/2017 Time Performed: 22:15:49 PTAGE: 32 years EKG: Sinus rhythm POSSIBLE RIGHT VENTRICULAR CONDUCTION DELAY RIGHT AXIS DEVIATION POOR R WAVE PROGRESSION PREVIOUS TRACING : 08/20/2017 19.09 Compared to previous tracing, axis has shifted rightw esteban. DOCTOR: Dank [place] Interpretating Date/Time 11/07/2017 08:07:23
== END 2017-11-07 00:11 | disposition left against medical advice (07) ==
LOC: PHED 22:02 → PHEDA 23:39
PROVIDERS: ADMIT Hospitalist; ATTEND Hospitalist
DX: R07.9 Chest pain, unspecified (principal); I45.10 Unspecified right bundle-branch block; Z98.1 Arthrodesis status; I10 Essential (primary) hypertension; F17.210 Nicotine dependence, cigarettes, uncomplicated
CPT/HCPCS: 71045; 80053; 82550; 82552; 83690; 83880; 84484; 85025; 85379; 85610; 85730; 93005; 99285; G0378

== ENCOUNTER 2017-11-11 10:23 | Day surgery (SDC) | payer BC ==
[~2017-11-11] VITALS: Ht 200.7 cm; Wt 121.4 kg
[~2017-11-11 10:23] MED LIST changes: -DOXE25CA2 PO; -GABA600T PO
[2017-11-11] MEDS ORDERED: IOHEXOL 350 MG/ML 100 ML BTL (for Cath Lab) OTHER ONE (10:24)
[2017-11-11 10:59] VITALS: BP 155/96; PULSE 83; RESP 16; TEMP 97.8; O2SAT 96
[2017-11-11] MEDS ORDERED: NS 1000P @30 MLS/HR (KVO) IV SCH (11:00)
[2017-11-11] MEDS ORDERED: METO25TA3 PO (11:04)
[2017-11-11] MEDS ORDERED: ECASA81 PO (11:04)
[2017-11-11 11:07] LABS: AUTOMATED NEUTROPHIL # 5.6 TH/MM3 (1.8-7.7); BASOPHIL % 0.5 % (0.0-2.0); EOSINOPHIL # 0.2 TH/MM3 (0-0.4); EOSINOPHIL % 2.4 % (0.0-4.0); HEMATOCRIT 42.4 % (39.0-51.0); HEMOGLOBIN 14.9 GM/DL (13.0-17.0); LYMPH % 27.4 % (9.0-44.0); LYMPHOCYTE # 2.5 TH/MM3 (1.0-4.8); MEAN CELL VOLUME 84.5 FL (80.0-100.0); MEAN CORPUSCULAR HEMOGLOBIN 29.7 PG (27.0-34.0); MEAN CORPUSCULAR HGB CONC 35.2 % (32.0-36.0); MEAN PLATELET VOLUME 8.3 FL (7.0-11.0); MONO % 7.5 % (0.0-8.0); MONOCYTE # 0.7 TH/MM3 (0-0.9); NEUT % 62.2 % (16.0-70.0); PLATELET COUNT 206 TH/MM3 (150-450); RED BLOOD COUNT 5.02 MIL/MM3 (4.50-5.90); RED CELL DISTRIBUTION WIDTH 14.3 % (11.6-17.2); WHITE BLOOD COUNT 9.1 TH/MM3 (4.0-11.0)
[2017-11-11 11:15] LABS: PROTHROMBIN TIME - PATIENT 10.2 SEC (9.8-11.6)
[2017-11-11 11:33] LABS: CALCIUM 8.6 MG/DL (8.5-10.1); CREATININE 1.07 MG/DL (0.60-1.30)
[2017-11-11] MEDS ORDERED: HEPARIN-NS/PF INJ 1,000 ML ONE (12:42)
[2017-11-11] MEDS ORDERED: MIDAZOLAM HCL 2 MG/2 ML VIAL ONE ×2 (12:43→13:27)
[2017-11-11] MEDS ORDERED: MIDAZOLAM HCL 2 MG/2 ML VIAL IV PUSH ONE ×2 (13:23→13:27)
--- NOTE | 2017-11-11 14:13 | CATHPROC ---
[employer] HIS Report Study Information Study Number Admission Scheduled Start Study Start [id number] Nov 11 2017 10:23AM 11/11/2017 Nov 11 2017 12:42PM [place] [facility] Cardiac Catheterization Admit Source Facility Department Emergency department [facility] - Hand Counter Physician and Clinical Staff Initial MD Olivas, Delia Line Technician Jeremiah RN, Jose Daniel Recorder Corrine Mckinney ,RT(R) Scrub Rashmi Villatoro,RT(R) (BS) Procedures Performed Procedure Location (Site) Vessel Name Angiogram LV LV Ventricle Coronary Angiograms LCA Left Coronary Coronary Angiograms RCA Right Coronary L Heart Cath Wire insertion Fem Art (right) Femoral Art Equipment Time Logistics Assistant Description Size Mfg Part Number Used/Scraped TRANSDUCER, TRFamily NationAVE [id number] 12:57 [employer] * Used W/STOCKCOCK *[id number] INTRODUCER SET, 12:57 [employer] FR 5 [id number] *[id number] Used MICROPUNCTURE STIFF 538-476 *[id number] 538-420 *[id number] 538-422 *[id number] 538-453S *[id number] 12:57 [employer] PACK, CCL CUSTOM * Used *[id number] 12:57 [employer] PACER PEN, SKIN DUAL W/ RULER * Used *[id number] 12:57 [employer] WIRE, 3MMJ .035 180CM 180CM Used *[id number] PROBE COVER, STERILE [id number] 12:57 [employer] MEDICAL * Used ULTRASOUND W/ GEL *[id number] 12:57 NAMIC MANIFOLD, 4 PORT * Used *[id number] 12:57 [employer] OMNIPAQUE, 350 MG, 150ML 150ML [id number] Used [id number] 12:57 [employer] MEDICAL BLANKET,WARM AIR CCL * Used *[id number] 12:57 [employer] MEDICAL SHEATH, FR4 TERUMO (10CM) FR 4 Used *[id number] History: Current Medications Medication Dosage/Unit Route Frequency Last Date/Time Taken LISINOPRIL ASA LOPRESSOR NTG SL Neurontin History: Allergies Allergy Reaction tramadol HEADACHES History: Risk Factors Family History of Hypertension Dyslipidemia Previous [place] Previous Heart Failure Premature CAD Yes No No No No Prior Valve Prior PCI Prior CABG Surgery No No No Cerebrovascular Peripheral Artery Chronic Lung On Dialysis Diabetes Disease Disease Disease No No No No No History: Symptoms/Diagnosis Selection Items Chest pain SOB History: Stress Tests Stress or Imaging Studies Performed Yes Standard Exercise Stress Test No Stress Echo No Stress Test SPECT Stress Test SPECT Result Stress Test SPECT Ischemia Risk/Extent Yes Positive Intermediate Stress Test CMR No Cardiac CTA Coronary Calcium Score No No History: Other Current Smoker Method Packs a Day Years Used Pack Years Yes Cigarettes 1 18 18 Labs Hgb (g/dl) Hct (%) WBC (l/cumm) Platelets (thousands) 11.60-17.00 35.00-51.00 4.00-11.00 150.00-450.00 14.9 42.4 9.1 206 Glucose (mg/dl) BUN (mg/dl) Creatinine (mg/dl) BUN:Creatinine (1:x) 74.00-106.00 7.00-18.00 0.50-1.30 10.00-20.00 90 14 1.0 14 Na (meq/l) K (meq/l) 136.00-145.00 3.50-5.10 140 4.1 CPK-MB (ng/ML) 0.50-3.60 Not Drawn Medication Medication Total Dose (Bolus/Oral) Medication Total Dosage/Unit 1% XYLOCAINE 20 mL FENTANYL 150 mcg VERSED 4 mg Medications (Bolus/Oral) Medication Time Given Dosage/Unit Administered By Reason VERSED 11/11/2017 1:23:01 PM 2 mg Jamidar, Humayun 2 mg VERSED given in lab by Delia Olivas in Left Antecubital via Peripheral IV. Ordered by Delia Chand. FENTANYL 11/11/2017 1:24:02 PM 50 mcg Jose Daniel Daniels RN 50 mcg FENTANYL given in lab by Jose Daniel Daniels RN via Peripheral IV. Ordered by Delia Olivas. VERSED 11/11/2017 1:27:24 PM 2 mg Jamidar, Humayun 2 mg VERSED given in lab by Delia Olivas in Left Antecubital via Peripheral IV. Ordered by Delia Chand. 1% XYLOCAINE 11/11/2017 1:28:03 PM 20 mL Jamidar, Humayun 20 mL 1% XYLOCAINE given in lab by Delia Olivas in Right Groin via Subcutaneous. Ordered by Delia Robert. FENTANYL 11/11/2017 1:28:30 PM 50 mcg Jose Daniel Daniels RN 50 mcg FENTANYL given in lab by Jose Daniel Daniels RN via Peripheral IV. Ordered by Delia Olivas. FENTANYL 11/11/2017 1:41:09 PM 50 mcg Jose Daniel Daniels RN 50 mcg FENTANYL given in lab by Jose Daniel Daniels RN via Peripheral IV. Ordered by Delia Olivas. Medication (Drip) Medication Time Given Dosage/Unit Concentration/Unit Diluent (ml) Solution IV Solutions 11/11/2017 12:48:57 PM 0 mL (IV) 500 NaCl .9 Patient arrived on IV Solutions given by Delia Olivas in Left Antecubital via Peripheral IV. Pump /Drip Flow = 20 ml/hr using NaCl .9. Ordered by Delia Olivas. Initial Case Assessment Cardiovascular HR Rhythm NIBP Chest Pain 65 sr 141/87 0 Edema Present Skin color Skin None Normal Warm Dry Circulatory - Right Pulses Dorsalis Pedis Femoral 2 2 Scale (0,1,2,3,4,d) Circulatory - Left Pulses Dorsalis Pedis Femoral 2 2 Scale (0,1,2,3,4,d) Neurological State Oriented to time-place- Alert Moves all extremities person Respiration - General Respiration Rate SpO2 (%) O2 (lpm) (B/min) 18 98 0 Final Case Assessment Cardiovascular HR Rhythm NIBP Chest Pain 65 sr 141/87 0 Edema Present Skin color Skin None Normal Warm Dry Circulatory - Right Pulses Dorsalis Pedis Femoral 2 2 Scale (0,1,2,3,4,d) Circulatory - Left Pulses Dorsalis Pedis Femoral 2 2 Scale (0,1,2,3,4,d) Neurological State Oriented to time-place- Alert Moves all extremities person Respiration - General Respiration Rate SpO2 (%) O2 (lpm) (B/min) 18 98 0 Chronological Log Time Study Chronological Log 12:36:39 Patient arrived via Bed. 12:36:40 Patient Name, D.O.B, / Armband Verified By R.N. Vitals capture started with the following parameters, Patient=Adult, Interval=5 min, Initial Pr ditsad=501 mmHg, 12:37:30 Deflation Rate=5 mmHg, Cuff placed on Right Arm 12:42:57 Consent signed by the physician and the patient and verified by the Hand Counter staff. 12:42:58 Pre-op and post- op instructions given; patient acknowledges understanding of instructions. 12:44:11 HR=70 bpm, VBXJ=591/79 mmhg, SpO2=99.0 %, Resp=8 B/min, Plummer=2 12:45:13 Presedation assessment performed by Hand Counter RN. 12:45:32 Patient has been NPO for More than 6Hrs. 12:45:35 Skin Breakdown-none present per patient. 12:48:29 A # 20 IV was noted in the Antecubital (left). Grade = 0 12:48:41 HR=70 bpm, CFSO=858/87 mmhg, SpO2=98.0 %, Resp=6 B/min, Plummer=2 Patient arrived on IV Solutions given by Delia Olivas in Left Antecubital via Peripheral IV . Pump/Drip Flow = 20 12:48:57 ml/hr using NaCl .9. Ordered by Delia Olivas. 12:49:25 History and physical on the chart or being dictated. Assessment: Initial Case, HR=65 BPM, Rhythm=sr, ZJEL=658/87 mmhg, Chest Pain=0, Edema=None, Col or=Normal, Skin = Warm, Dry Right Pulses: Luis Ped=2, Femoral=2 12:49:28 Left Pulses: Luis Ped=2, Femoral=2 Neurological: State=Alert, Ox3, BAR Respiration: Resp=18 B/min, SpO2=98 %, O2=0 lpm 12:49:59 Bilateral groins prepped with 2% chlorhexidine, and draped after a 3 minute waiting time. 12:54:17 HR=69 bpm, JTHW=355/77 mmhg, SpO2=99.0 %, Resp=13 B/min 12:56:26 Pressure channel 1 zeroed. 12:58:43 HR=65 bpm, QKIN=693/78 mmhg, SpO2=99.0 %, Resp=10 B/min, Pain=0, Mikey=10, Plummer=2 13:02:46 Reference ECG taken 13:03:44 HR=76 bpm, QIFH=002/79 mmhg, SpO2=99.0 %, Resp=8 B/min, Pain=0, Mikey=10, Plummer=2 13:08:46 HR=71 bpm, GUZM=044/82 mmhg, SpO2=97.0 %, Resp=8 B/min, Pain=0, Mikey=10, Plummer=2 13:13:49 HR=97 bpm, PUKT=991/87 mmhg, SpO2=98.0 %, Resp=14 B/min, Pain=0, Mikey=10, Plummer=2 13:18:46 HR=74 bpm, QVRA=104/78 mmhg, SpO2=99.0 %, Resp=14 B/min, Pain=0, Mikey=10, Plummer=2 13:23:01 2 mg VERSED given in lab by Delia Olivas in Left Antecubital via Peripheral IV. Ordered by Delia Olivas. 13:24:02 50 mcg FENTANYL given in lab by Jose Daniel Daniels RN via Peripheral IV. Ordered by Sadie Olivas. 13:24:15 MD arrived. 13:24:22 HR=67 bpm, RFAT=119/63 mmhg, SpO2=97.0 %, Resp=19 B/min, Pain=0, Mikey=10, Plummer=2 Time Out. Correct patient, correct procedure, correct physician, labs, allergies, and equipment verified with cath lab nurse 13:26:37 team present. Fire risk assesment completed (see hard stop sheet for coding). Time Out Conc urred by MD and individual staff in procedure. 13:27:24 2 mg VERSED given in lab by Delia Olivas in Left Antecubital via Peripheral IV. Ordered by Delia Olivas. 13:27:40 Case Start 20 mL 1% XYLOCAINE given in lab by Delia Olivas in Right Groin via Subcutaneous. Ordered by Brendon, 13:28:03 Delia. 13:28:30 50 mcg FENTANYL given in lab by Jose Daniel Daniels RN via Peripheral IV. Ordered by Sadie Olivas. 13:28:48 HR=73 bpm, TTQQ=146/86 mmhg, SpO2=99.0 %, Resp=6 B/min, Pain=0, Mikey=10, Plummer=2 13:29:57 Access site was Right Femoral Artery. 13:30:06 A wire was inserted via Fem Art (right). A INTRODUCER SET, MICROPUNCTURE STIFF FR 5 was advanced into the Fem Art (right) using the Perc utaneous 13:30:09 technique. A SHEATH, FR4 TERUMO (10CM) FR 4 was exchanged in the Fem Art (right). This was necessary in or hubert to 13:30:15 accomodate a larger catheter. A JL 5.0 INFINITI CATHETER FR 4 was advanced over a wire. OMNIPAQUE, 350 MG, 150ML 150ML was us ed for 13:32:39 injections. 13:33:45 HR=83 bpm, EJVB=369/90 mmhg, SpO2=90.0 %, Resp=13 B/min, Pain=0, Mikey=10, Plummer=2 Recorded Pressure: Ao, HR=73, Condition=Condition 1 13:34:12 (Aorta) Ao 96/69/83 13:35:03 Catheter was removed A 3DRC INFINITI CATHETER FR 4 was advanced over a wire. OMNIPAQUE, 350 MG, 150ML 150ML was used for 13:35:37 injections. 13:37:19 The RCA was injected and visualized at various angles. OMNIPAQUE, 350 MG, 150ML 150ML used . 13:38:40 Catheter was removed A JL 4.0 INFINITI CATHETER FR 4 was advanced over a wire. OMNIPAQUE, 350 MG, 150ML 150ML was us ed for 13:38:42 injections. 13:38:50 HR=76 bpm, HRUR=702/75 mmhg, SpO2=97.0 %, Resp=11 B/min 13:40:06 The LCA was injected and visualized at various angles. OMNIPAQUE, 350 MG, 150ML 150ML used . 13:41:09 50 mcg FENTANYL given in lab by Jose Daniel Daniels RN via Peripheral IV. Ordered by Sadie Olivas. 13:43:49 HR=89 bpm, GQCV=216/75 mmhg, SpO2=98.0 %, Resp=9 B/min, Pain=0, Mikey=10, Plummer=2 13:44:14 Catheter was removed A PIGTAIL ANG. INFINITI CATHETER FR 4 was advanced over a wire. OMNIPAQUE, 350 MG, 150ML 150ML was used 13:44:35 for injections. Recorded Pressure: LV, HR=79, Condition=Condition 1 13:45:47 (Left Ventricle) LV 119/-2/7 13:46:28 The LV was injected at 8 cc/sec for a total of 32. OMNIPAQUE, 350 MG, 150ML 150ML used. Recorded Pressure: LV, Ao, HR=84, Condition=Condition 1 13:47:25 (Left Ventricle) LV 109/1/5, (Aorta) Ao 108/76/92 13:47:40 Catheter was removed 13:47:43 Case End Assessment: Final Case, HR=65 BPM, Rhythm=sr, KXTA=731/87 mmhg, Chest Pain=0, Edema=None, [place] r=Normal, Skin = Warm, Dry Right Pulses: Luis Ped=2, Femoral=2 13:47:50 Left Pulses: Luis Ped=2, Femoral=2 Neurological: State=Alert, Ox3, BAR Respiration: Resp=18 B/min, SpO2=98 %, O2=0 lpm 13:48:10 Catheter(s) removed without difficulty 13:48:24 Sheath removed; pressure applied to access site. 13:48:26 Case End 13:48:28 Sterile dressing applied to site 13:48:29 No case complications noted. 13:48:30 Cine recording checked. 13:48:30 Bedside Report will be given. 13:48:36 A Left Heart Cath was performed. 13:48:52 HR=83 bpm, QKSJ=853/74 mmhg, SpO2=97.0 %, Resp=10 B/min, Pain=0, Mikey=10, Plummer=2 13:54:34 HR=77 bpm, QYLE=965/78 mmhg, SpO2=98.0 %, Resp=11 B/min, Pain=0, Mikey=10, Plummer=2 13:58:48 HR=71 bpm, IXPB=993/78 mmhg, SpO2=98.0 %, Resp=8 B/min, Pain=0, Mikey=10, Plummer=2 14:03:51 HR=84 bpm, JJPD=416/84 mmhg, SpO2=97.0 %, Resp=11 B/min, Pain=0, Mikey=10, Plummer=2 14:08:27 Vitals capture stopped. End Study - Contrast Media Used In Study Contrast Total Opened (mL) Total Used (mL) Total Wasted (mL) Omnipaque 60 60 0 End Study - Maximum Contrast Load Max Contrast Load (mL) 608.4 End Study - Radiation Exposure Fluoro Time (minutes) 4.7 End Study - Sheaths Sheaths Pulled By Sheath Hold Time (min) Rashmi Villatoro End Study - Patient Disposition Complications Transferred To Interventional Outcome No Telemetry Bed No attempt made
--- NOTE | 2017-11-11 14:44 | MA ---
cc: Delia Olivas MDSergei DO DATE: 11/11/2017 INDICATIONS FOR CATHETERIZATION: 1. Recurrent chest pains. 2. Abnormal nuclear stress test. CONSENT: Fully informed consent was obtained prior to the procedure. The risks of , bleeding, myocardial infarction, perforation, aspiration, foreseen and unforeseen complications were reviewed. The patient appeared to fully understand the risks. PROCEDURAL STATEMENTS: The patient was draped and prepped in the usual manner. The right femoral artery was entered using a micropuncture technique. Via the 4-[place] system, left and right coronary catheters were used to intubate the right and left coronaries. Multiple angiographic views were carried out. At the end of the catheterization procedure, all catheters and sheaths were removed and manual pressure applied until good hemostasis was achieved and the patient was returned to his room in stable condition. NOTE: Sedation was given during the heart catheterization. FINDINGS: I. HEMODYNAMICS: Aortic pressure was 108/76 with a mean aortic pressure of 92. Left ventricle pressure is 109 with a left ventricular end-diastolic pressure of 5. There was no evidence of significant gradient on pullback across the LV outflow tract and aortic valve. CORONARY ARTERIES: The left main was large and free of significant disease. The left anterior descending artery was a large vessel. The first diagonal branch was medium and free of significant disease. The intermediate ramus branch was medium and free of significant disease. The first obtuse marginal branch was small and free of significant disease. All coronary vessels were tortuous. The right coronary artery was a large vessel with a large posterior descending artery, medium first posterolateral branch and a large second posterolateral branch. It was a dominant right coronary; there was no significant stenoses. CONCLUSIONS: 1. Tortuous vessels throughout. 2. Normal coronaries. 3. Normal left ventricular ejection fraction with mildly hyperdynamic heart. 4. No significant coronary artery disease. PLAN: Medical management. MD YUE New/CHRISTIANO , 02:03 PM , 02:43 PM
[2017-11-11] MEDS ORDERED: ACETAMINOPHEN/HYDROcodone 325 MG/5 MG TAB PO PRN ×2 (14:45)
--- NOTE | 2017-11-11 15:47 | EKG ---
Date Performed: 11/11/2017 Time Performed: 11:04:02 PTAGE: 32 years EKG: Sinus rhythm . Left anterior fascicular block Low QRS voltages in precordial leads Borderline ECG Compared to PREVIOUS TRACING , left axis deviation is new. Suspect prior EKG had limb lead reversal, which is now resolved. PREVIOUS TRACIN11/06/2017 22.15 DOCTOR: Tyron Vides Interpretating Date/Time 11/11/2017 15:46:51
== END 2017-11-11 18:07 | disposition home or self-care (01) ==
LOC: HDOC 10:23 → HDIC 10:29 → HDOC 18:07
PROVIDERS: ATTEND Internal Medicine Cardiovascular Disease
DX: R94.39 Abnormal result of other cardiovascular function study (principal); I77.1 Stricture of artery; I44.4 Left anterior fascicular block
CPT/HCPCS: 80048; 85025; 85610; 85730; 93005; 93458; 99152; 99153; C1769; C1893; J1644; J2250; J3010; Q9967

== ENCOUNTER 2018-04-29 10:04 | Inpatient (IN) ==
[2018-04-29] MEDS ORDERED: Diphtheria/Tetanus/Pertussis Vaccine Inj 0.5 ML Syringe IM ONE (10:32)
[2018-04-29] MEDS ORDERED: Morphine Inj 4 MG/ML Vial IV.PUSH ONE (10:32)
[2018-04-29 11:02] LABS: Baso % (Auto) 0.4 % (0.0-2.0); Eos % (Auto) 0.6 % (0.0-4.0); Hematocrit 40.4 % (39.0-51.0); Hemoglobin 14.2 gm/dL (13.0-17.0); Lymph # (Auto) 1.2 th/mm3 (1.0-4.8); Lymph % (Auto) 14.9 % (9.0-44.0); Mean Corpuscular HGB Conc 35.1 % (32.0-36.0); Mean Corpuscular Hemoglobin 32.1 pg (27.0-34.0); Mean Corpuscular Volume 91.4 fL (80.0-100.0); Mean Platelet Volume 8.4 fL (7.0-11.0); Mono # (Auto) 0.7 th/mm3 (0.0-0.9); Mono % (Auto) 8.2 % (0.0-8.0); Neut # (Auto) 6.3 th/mm3 (1.8-7.7); Neut % (Auto) 75.9 % (16.0-70.0); Platelet Count 251 th/mm3 (150-450); Red Blood Count 4.42 mil/mm3 (4.50-5.90); Red Cell Distribution Width 11.8 % (11.6-17.2); White Blood Count 8.2 th/mm3 (4.0-11.0)
[2018-04-29 11:04] LABS: Potassium 3.6 meq/L (3.5-5.1)
[2018-04-29 11:07] LABS: Calcium 8.5 mg/dL (8.5-10.1); Carbon Dioxide 26.5 meq/L (21.0-32.0)
[2018-04-29 11:12] LABS: Activated Partial Thrombo Time 33.1 sec (23.4-31.7); INR 1.1 Ratio; Prothrombin Time 11.2 sec (9.8-11.6)
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
[2018-04-29 13:10] LABS: Barbiturate Screen,Urine Neg (Neg)
[2018-04-29 13:11] LABS: Cannabinoid Screen,Urine Pos (Neg); Cocaine Screen,Urine Pos (Neg)
[2018-04-29 13:16] LABS: Opiate Screen,Urine Neg (Neg)
[2018-04-29 13:20] LABS: Amphetamine Screen,Urine Neg (Neg)
[2018-04-29] MEDS ORDERED: Morphine Sulfate Inj 2 MG/ML Vial IV.PUSH PRN (15:32)
[2018-04-29] MEDS: Sod Chloride 0.9% Inj 1,000 ML IV.CONT SCH (16:18)
[2018-04-29] MEDS: Pantoprazole Inj 40 MG Vial IV.PUSH SCH (16:28)
[2018-04-29 19:33] LABS: Hematocrit 40.2 % (39.0-51.0); Hemoglobin 14.4 gm/dL (13.0-17.0)
[2018-04-29] MEDS: Docusate Sodium 100 MG Capsule PO SCH (21:40)
[2018-04-29 21:52] LABS: Hematocrit 40.2 % (39.0-51.0); Hemoglobin 14.5 gm/dL (13.0-17.0)
[2018-04-30] MEDS: Sod Chloride 0.9% Inj 1,000 ML IV.CONT SCH ×2 (02:24→14:01)
[2018-04-30 06:36] LABS: Baso % (Auto) 0.4 % (0.0-2.0); Eos # (Auto) 0.1 th/mm3 (0.0-0.4); Eos % (Auto) 2.2 % (0.0-4.0); Hematocrit 41.8 % (39.0-51.0); Hemoglobin 14.6 gm/dL (13.0-17.0); Lymph # (Auto) 1.6 th/mm3 (1.0-4.8); Lymph % (Auto) 23.5 % (9.0-44.0); Mean Corpuscular Hemoglobin 32.2 pg (27.0-34.0); Mean Corpuscular Volume 91.9 fL (80.0-100.0); Mean Platelet Volume 8.9 fL (7.0-11.0); Mono # (Auto) 0.6 th/mm3 (0.0-0.9); Neut # (Auto) 4.4 th/mm3 (1.8-7.7); Neut % (Auto) 64.9 % (16.0-70.0); Platelet Count 191 th/mm3 (150-450); Red Blood Count 4.54 mil/mm3 (4.50-5.90); Red Cell Distribution Width 12.8 % (11.6-17.2); White Blood Count 6.7 th/mm3 (4.0-11.0)
[2018-04-30 06:58] LABS: Alanine Aminotransferase 46 U/L (12-78); Albumin 3.5 g/dL (3.4-5.0); Anion Gap 8 meq/L (5-15); Aspartate Aminotransferase 31 U/L (15-37); Blood Urea Nitrogen 7 mg/dL (7-18); Calcium 8.3 mg/dL (8.5-10.1); Carbon Dioxide 25.6 meq/L (21.0-32.0); Chloride 107 meq/L (98-107); Glomerular Filtration Rate Greater Than 89 mL/min (>89); Glucose,Random 76 mg/dL (74-106); Potassium 3.5 meq/L (3.5-5.1); Sodium 141 meq/L (136-145)
[2018-04-30 07:00] LABS: Alkaline Phosphatase 44 U/L (45-117); Total Protein 6.5 g/dL (6.4-8.2)
[2018-04-30] MEDS: Docusate Sodium 100 MG Capsule PO SCH ×2 (09:19→20:44)
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
[2018-04-30] MEDS: Pantoprazole Inj 40 MG Vial IV.PUSH SCH (17:38)
[2018-05-01] MEDS: Sod Chloride 0.9% Inj 1,000 ML IV.CONT SCH (00:33)
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
[2018-05-01 08:27] VITALS: BP 137/76; PULSE 92; RESP 18; TEMP 98.2; O2SAT 97
== END 2018-05-01 09:02 | disposition home or self-care (01) ==
LOC: PHED 10:04 → PHEDA 12:27 → N06 14:10
PROVIDERS: ADMIT Surgery; ATTEND Surgery